=== PATIENT | male | born 1955 | race Caucasian/White ===

== ENCOUNTER 2021-10-23 09:18 | Inpatient (IN) ==
--- NOTE | 2021-10-23 09:55 | Emergency Department Note ---
SOB HPI General Chief Complaint: Shortness of Breath/Dyspnea Stated Complaint: shortness of breath Time Seen by Provider: 10/23/21 09:37 Source: patient Mode of arrival: ambulatory Limitations: no limitations History of Present Illness HPI Narrative: 58-year-old male with past medical history of hypertension presenting with shortness of breath. Patient states he was diagnosed with Covid 1 week ago as he and his both tested positive. He states his is improving but over the last 2 days he is developed worsening shortness of breath and a nonproductive cough. Endorses chills but no fever. He has not had the Covid vaccine. No chest pain, abdominal pain, vomiting, leg swelling, headache, or neck pain. Denies any other sick contacts. Denies any drug use. Related Data Home Medications Medication Instructions Recorded Confirmed potassium citrate 10 mEq (1,080 10 meq PO QDAY tab 08/04/20 10/23/21 mg) tablet,extended release Allergies Allergy/AdvReac Type Severity Reaction Status Date / Time No Known Drug Allergies Allergy Verified 09/25/21 09:07 Review of Systems ROS ROS Narrative: Narrative: Constitutional: Reports chills; Denies fever Eyes: Denies vision change ENT ED: Denies ear pain or throat pain Cardiovascular: Denies chest pain or palpitations Respiratory: Reports shortness of breath and cough; Denies hemoptysis Gastrointestinal: Denies abdominal pain, nausea or vomiting Genitourinary: Denies dysuria or frequency Musculoskeletal: Denies back pain or joint swelling Integumentary: Denies rash or lesions Neurological: Denies headache or weakness Psychiatric: Denies anxiety or depression Endocrine: Reports fatigue; Denies heat or cold intolerance Hematological/Lymphatic: Denies easy bleeding or easy bruising PFSH Narrative Patient History Narrative: Narrative: Medical/Surgical/Family History All Active Problems (Updated 10/23/21 @ 12:53 by Samuel Alves MD) COVID-19 (Acute) Hypoxia (Acute) History of colonoscopy (Chronic ~2015) Acid reflux (Chronic) Knee joint pain (Chronic) History of hernia surgery (Chronic ~2012) Creatinine elevation (Chronic) Nephrolithiasis (Chronic) Essential hypertension (Chronic) Nephrolithiasis (Chronic) Benign hypertension with CKD (chronic kidney disease) stage III (Chronic) Medicare annual wellness visit, initial (Chronic) 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 2 episodes of stone passage one recently and stones are available for analysis, probably has established essential hypertension but is yet to be placed on treatment. [place] urinalysis otherwise except for a couple of red cells with a history of recent stone passage Essential hypertension Last 2 blood pressure readings in the EMR are elevated above 140/80 At follow-up we will decide on initial treatment with probably a low-sodium diet and thiazide if indicated for his nephrolithiasis as well Knee joint pain Medicare annual wellness visit, initial Nephrolithiasis By history 2 episodes of stone passage 1 recently with multiple stones which he saved for analysis. Low urine volume and low urine pH-improved Since Jan 2021 K citrate OTC Risk assessment: Acid urine and uric acids > ss level Surgical History History of colonoscopy (~2015) 2015, 10/16/20 History of hernia surgery (~2012) Family History Mother Dementia Diabetes Father Stroke Social History Smoking Status: Former smoker Alcohol Intake Frequency: a few times a week Substance Use: does not use Exam Narrative Narrative: Narrative: General Limitations: no limitations General appearance: Present alert and other (In mild respiratory distress) Head Head: Present atraumatic and normocephalic Eye Eye: Present normal appearance, PERRL and EOMI; Absent scleral icterus or conju nctival injection ENT ENT: Present normal oropharynx and mucous membranes moist Neck Neck: Present trachea midline; Absent lymphadenopathy or thyromegaly Chest Chest: Present symmetric chest wall rise Respiratory Respiratory: Present respiratory distress and rales/crackles (At bilateral bases); Absent wheezes, stridor, accessory muscle use or prolonged expiratory phase Cardiovascular Cardiovascular: Present regular rate and normal rhythm; Absent systolic murmur or diastolic murmur Adbominal Abdominal: Present soft; Absent distention, tenderness, guarding, rebound, rigidity, organomegaly or mass Extremities Extremities: Absent pedal edema, pretibial edema or calf tenderness Back Back: Absent CVA tenderness (R), CVA tenderness (L) or spinous process tenderness Neurological Neurological: Present alert and oriented X3 Psychiatric Psychiatric: Present normal affect and normal mood Skin Skin: Present warm (WNL) and dry Course Course Course Narrative: Patient feels improved after being on O2 via nasal cannula Reevaluation(s) Time: 12:35 Consultations Consultation #1: Dr. Riley, hospitalist Time: 12:25 Vital Signs Vital signs: Vital Signs Temperature 99.0 F 10/23/21 09:18 Pulse Rate 90 10/23/21 09:18 Respiratory Rate 24 H 10/23/21 09:18 Blood Pressure 137/94 10/23/21 09:18 Pulse Oximetry (%) 88 L 10/23/21 09:18 Temperature 99.0 F 10/23/21 09:18 Pulse Rate 78 10/23/21 12:32 Respiratory Rate 23 H 10/23/21 12:32 Blood Pressure 125/89 10/23/21 12:32 Pulse Oximetry (%) 94 10/23/21 12:32 MDM MDM Narrative Medical decision making narrative: 58-year-old male presenting with shortness of breath. Patient is hypoxic on room air to 86% and is up to 93% on 4 L via nasal cannula. Chest x-ray consistent with COVID-19 infection. Labs notable for hyponatremia to 128, normal saline bolus given. [place] Covid swab sent. Patient discussed with adm itting hospitalist, Dr. Riley, who recommends Decadron and remdesivir. Patient is amenable to Decadron, 6 mg IV given. Patient refuses remdesivir at this time. Will admit for further management, patient understanding and agreeable with plan. Lab Data Lab results reviewed: Yes I reviewed the patient's lab results. Result diagrams: 10/23/21 09:39 10/23/21 09:39 Labs: Lab Results 10/23/21 10/23/21 Range/Units 09:39 09:39 WBC 6.2 (4.5-11.0) K/mcL RBC 5.83 (4.63-6.08) M/mcL Hgb 16.3 (13.7-17.5) g/dL Hct 49.0 (40.1-51.0) % MCV 84.0 (80.0-100.0) fL MCH 28.0 (26.0-34.0) pg MCHC 33.3 (31.0-36.0) g/dL RDW 13.4 (11.5-14.5) % Plt Count 241 (140-440) K/mcL MPV 10.6 H (7.4-10.4) fL Neut % (Auto) 79.1 H (38.0-78.0) % Lymph % (Auto) 8.7 L (15.5-49.0) % [place] % (Auto) 11.9 (1.0-12.0) % Eos % (Auto) 0 (0.0-7.0) % Baso % (Auto) 0.3 (0.0-2.0) % Lymph # (Auto) 0.54 L (1.50-4.80) K/mcL [place] # (Auto) 0.74 (0.10-0.90) K/mcL Eos # (Auto) 0 (0.00-0.70) K/mcL Baso # (Auto) 0.02 (0.00-0.30) K/mcL Absolute Neutrophils 4.91 (1.80-8.00) K/mcL Sodium 128 L (133-145) mmol/L Potassium 4.3 (3.3-5.1) mmol/L Chloride 95 L (96-108) mmol/L Carbon Dioxide 18 L (22-30) mmol/L Anion Gap 15.0 (8.0-16.0) BUN 17 (8-23) mg/dL Creatinine 1.4 H (0.7-1.2) mg/dL GFR Calculation 51 Glucose 117 H (70-105) mg/dL Calcium 8.7 (8.6-10.4) mg/dL Total Bilirubin 0.4 (0.1-1.0) mg/dL AST 40 H (<40) U/L ALT 19 (<40) U/L Alkaline Phosphatase 47 (39-117) U/L Total Protein 6.6 (5.9-8.4) gm/dL Albumin 3.1 L (3.2-5.2) gm/dL Globulin 3.5 (2.2-3.7) gm/dL Albumin/Globulin Ratio 0.9 L (1.0-2.3) Radiology Data Radiology results reviewed: Yes I reviewed the patient's radiology results. Radiology results narrative: Ordering Physician:Samuel Alves M.D. Date of Service:10/23/21 Procedure(s):XR chest 1V portable CLINICAL INFORMATION: Hypoxia. Recent Covid COMPARISON: None. TECHNIQUE: PA and Lateral views FINDINGS: The heart is mildly enlarged. Mediastinum is unremarkable. Pulmonary vessels are normal. There is moderate interstitial disease seen in both mid and lower lungs. This was not seen on prior 03/30/2020 CT KUB. No no effusions. IMPRESSION: Interstitial disease in both mid and lower lungs new from imaging seven months prior. This could represent pneumonia or organizing fibrosis. Mild cardiomegaly table. Interpreted and Authenticated by: Jose Alberto Kelsey 10/23/21 EKG Data EKG #1: EKG attestation: Yes I reviewed and interpreted this EKG. EKG results narrative: Normal sinus rhythm at [address] elevation or depression. Interpretation: no acute changes and normal EKG Pulse Oximetry Data Pulse Ox %: 86 Interpretation: On room air. Placed on 4 L via nasal cannula. Discharge Plan Patient/Caregiver Discharge Instructions Pt seen by [facility]/PA only: No Clinical Impression: COVID-19, Hypoxia Patient Disposition: Xfer As Inpt ([facility]) Follow up with: Jose Alberto Ramos DO [Primary Care Provider] - Prescriptions: No Action potassium citrate 10 mEq (1,080 mg) tablet extended release 10 meq PO QDAY 0RF
--- NOTE | 2021-10-23 10:30 | XRay Report ---
CLINICAL INFORMATION: Hypoxia. Recent Covid COMPARISON: None. TECHNIQUE: PA and Lateral views FINDINGS: The heart is mildly enlarged. Mediastinum is unremarkable. Pulmonary vessels are normal. There is moderate interstitial disease seen in both mid and lower lungs. This was not seen on prior 03/30/2020 CT KUB. No no effusions. IMPRESSION: Interstitial disease in both mid and lower lungs new from imaging seven months prior. This could represent pneumonia or organizing fibrosis. Mild cardiomegaly table. Interpreted and Authenticated by: Jose Alberto Kelsey 10/23/21
[2021-10-23 10:33] LABS: Basophils # (Auto) 0.02 K/mcL (0.00-0.30); Basophils % (Auto) 0.3 % (0.0-2.0); Eosinophils # (Auto) 0 K/mcL (0.00-0.70); Eosinophils % (Auto) 0 % (0.0-7.0); Hemoglobin 16.3 g/dL (13.7-17.5); Lymphocytes # (Auto) 0.54 K/mcL (1.50-4.80); Lymphocytes % (Auto) 8.7 % (15.5-49.0); Mean Corpuscular HGB Conc 33.3 g/dL (31.0-36.0); Mean Platelet Volume 10.6 fL (7.4-10.4); Monocytes # (Auto) 0.74 K/mcL (0.10-0.90); Monocytes % (Auto) 11.9 % (1.0-12.0); Neutrophils % (Auto) 79.1 % (38.0-78.0); Platelet Count 241 K/mcL (140-440); RBC 5.83 M/mcL (4.63-6.08); Red Cell Distribution Width 13.4 % (11.5-14.5); WBC 6.2 K/mcL (4.5-11.0)
[2021-10-23 11:28] LABS: ALT/SGPT 19 U/L (<40); AST/SGOT 40 U/L (<40); Albumin 3.1 gm/dL (3.2-5.2); Albumin/Globulin Ratio 0.9 (1.0-2.3); Alkaline Phosphatase 47 U/L (39-117); Bilirubin,Total 0.4 mg/dL (0.1-1.0); Blood Urea Nitrogen 17 mg/dL (8-23); Calcium 8.7 mg/dL (8.6-10.4); Carbon Dioxide 18 mmol/L (22-30); Chloride 95 mmol/L (96-108); Globulin 3.5 gm/dL (2.2-3.7); Glomerular Filtration Rate 51; Glucose 117 mg/dL (70-105)
[2021-10-23] MEDS ORDERED: 0.9 % SODIUM CHLORIDE 1,000 ML IV ONE (11:31)
[2021-10-23] MEDS ORDERED: DEXAMETHASONE 10 MG/ML VIAL IV ONE (12:21)
--- NOTE | 2021-10-23 12:32 | Internal Med History&Physical ---
HPI History of Present Illness Patient information: Note initiated : 10/23/21 at 12:30 pm Service Date, if different from initiated Date: [] Patient: Zac Farias a 66 y/o M admitted on for shortness of breath. Chief Complaint: [] History of present illness: Mr. Farias is a 66 year old M unvaccinated for Covid with who started experiencing URI symptoms roughly 10 days prior to presentation. He was tested positive for Covid 7 days ago. Has tried to work with the symptoms at home however became progressively short of breath, fatigued, tired and loss of appetite. He has not been able to eat or drink over the last few days. His symptoms have progressed to the point she could barely perform ADLs. He endorses to sick contact including his . He further endorses to increasing exertional dyspnea/cough/myalgias, headache but denies diarrhea, dysuria, hemoptysis, dysuria, joint pain or rash Initial work-up in the ER was consistent with multifocal chest infiltrates suggestive of COVID-19 pneumonia. On arrival patient sats low 80s requiring 6 L oxygen. Patient was started on dexamethasone. Subsequently hospitalist service was consulted. At the time of my evaluation patient is moderately distressed. He was able to answer most of the questions. He does not want to be initiated on remdesivir but consents for Actemra. 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 2 episodes of stone passage one recently and stones are available for analysis, probably has established essential hypertension but is yet to be placed on treatment. [place] urinalysis otherwise except for a couple of red cells with a history of recent stone passage Essential hypertension Last 2 blood pressure readings in the EMR are elevated above 140/80 At follow-up we will decide on initial treatment with probably a low-sodium diet and thiazide if indicated for his nephrolithiasis as well Knee joint pain Medicare annual wellness visit, initial Nephrolithiasis By history 2 episodes of stone passage 1 recently with multiple stones which he saved for analysis. Low urine volume and low urine pH-improved Since Jan 2021 K citrate OTC Risk assessment: Acid urine and uric acids > ss level Surgical History History of colonoscopy (~2015) 2015, 10/16/20 History of hernia surgery (~2012) Family History Mother Dementia Diabetes Father Stroke Social History marital status: occupational status: retired alcohol intake frequency: a few times a week substance use type: does not use MEDS/ALLERGIES Home Medications and Allergies Home Medications Medication Instructions Recorded Confirmed Type potassium citrate 10 mEq (1,080 10 meq PO QDAY tab 08/04/20 10/23/21 History mg) tablet,extended release Allergies Allergy/AdvReac Type Severity Reaction Status Date / Time No Known Drug Allergies Allergy Verified 09/25/21 09:07 EXAM Constitutional Vitals: Temp Pulse Resp BP Pulse Ox 99.0 F 80 23 H 122/83 92 10/23/21 09:18 10/23/21 12:02 10/23/21 12:02 10/23/21 12:02 10/23/21 12:02 Fatigue lethargic and anxious Head normocephalic Oral cavity dry No ear or nose discharge Eye no subconjunctival pallor, movement symmetrical S1-S2 regular Nonlabored breathing on 6 L oxygen Nondistended nontender abdomen Lower extremity no cyanosis clubbing or joint swelling Skin no suspicious lesion Psych anxious but no hallucination Neuro normal higher function DATA Data Completed and Pending Labs: Labs from last 24 hours 10/23/21 10/23/21 09:39 09:39 WBC 6.2 RBC 5.83 Hgb 16.3 Hct 49.0 MCV 84.0 MCH 28.0 MCHC 33.3 RDW 13.4 Plt Count 241 MPV 10.6 H Neut % (Auto) 79.1 H Lymph % (Auto) 8.7 L [place] % (Auto) 11.9 Eos % (Auto) 0 Baso % (Auto) 0.3 Lymph # (Auto) 0.54 L [place] # (Auto) 0.74 Eos # (Auto) 0 Baso # (Auto) 0.02 Absolute Neutrophils 4.91 Sodium 128 L Potassium 4.3 Chloride 95 L Carbon Dioxide 18 L Anion Gap 15.0 BUN 17 Creatinine 1.4 H GFR Calculation 51 Glucose 117 H Calcium 8.7 Total Bilirubin 0.4 AST 40 H ALT 19 Alkaline Phosphatase 47 Total Protein 6.6 Albumin 3.1 L Globulin 3.5 Albumin/Globulin Ratio 0.9 L A/P Narrative A/P Narrative: * COVID-19 pneumonia-Covid +10/16, now hypoxic requiring 4 L oxygen,PCU admission/initiate remdesivir/dexamethasone, consent for interleukin-6 number, thrombosis prophylaxis/coag and inflammatory markers, maintain COVID-19 precautions * Acute hypoxic respiratory failure secondary to Covid pneumonia. Continue with low flow oxygen/pulmonary toilet/ Prone ventilation and transition to high flow/NIV if indicated, serial ABG/CXR * Generalized weakness, malaise secondary to acute viral syndrome * Twice daily Lovenox Plan * Inpatient PCU admission * Prone positioning, low-flow oxygen and transition to high flow if indicated * Serial imaging/ABG/coag inflammatory markers/ IL6 * Remdesivir/Actemra/thrombosis prophylaxis * Directed therapies/nutrition support/early mobilization * Nutrition support Time Spent With Patient Time: CC time in excess of 35 minutes in addition to time spent on history and physical on management of hypoxia spray failure/Covid pneumonia
--- NOTE | 2021-10-23 12:54 | EKG ---
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
[2021-10-23] MEDS ORDERED: ACETAMINOPHEN 650 MG/65 ML BAG IV PRN (14:29)
[2021-10-23] MEDS ORDERED: POTASSIUM CHLORIDE 40 MEQ in DEXTROSE 5% IN WATER 500 ML IV PRN (14:29)
[2021-10-23] MEDS ORDERED: MAGNESIUM SULFATE 2 GM/50 ML BAG IV PRN (14:29)
[2021-10-23] MEDS ORDERED: REMDESIVIR 100 MG in 0.9 % SODIUM CHLORIDE 250 ML IV SCH (14:29)
[2021-10-23] MEDS ORDERED: ONDANSETRON 4 MG/2 ML VIAL IV PRN (14:29)
[2021-10-23] MEDS ORDERED: POTASSIUM CHLORIDE 20 MEQ PACKET PO PRN (14:29)
[2021-10-23] MEDS ORDERED: TOCILIZUMAB 800 MG in 0.9 % SODIUM CHLORIDE 60 ML IV ONE (15:00)
[2021-10-23] MEDS: 0.9 % SODIUM CHLORIDE 10 ML SYRINGE IV SCH ×2 (16:11→20:45)
[2021-10-23] MEDS: DOCUSATE SODIUM 100 MG CAPSULE PO SCH (20:39)
[2021-10-23] MEDS: SENNOSIDES/DOCUSATE SODIUM 1 TAB TABLET PO SCH (20:39)
[2021-10-23] MEDS: ASCORBIC ACID 500 MG TABLET PO SCH (20:40)
[2021-10-23] MEDS: ACETAMINOPHEN 325 MG TABLET PO PRN (20:40)
[2021-10-23] MEDS: ENOXAPARIN 30 MG/0.3 ML SYRINGE SQ SCH (20:40)
[2021-10-24] MEDS: ACETAMINOPHEN 325 MG TABLET PO PRN (00:41)
[2021-10-24] MEDS: 0.9 % SODIUM CHLORIDE 10 ML SYRINGE IV SCH ×3 (05:45→21:27)
[2021-10-24] MEDS: ENOXAPARIN 30 MG/0.3 ML SYRINGE SQ SCH ×2 (08:19→21:15)
[2021-10-24] MEDS: POTASSIUM CITRATE 10 MEQ TAB.XL.24H PO SCH (08:19)
[2021-10-24] MEDS: VITAMIN D3 125 MCG TABLET PO SCH (08:19)
[2021-10-24] MEDS: ASCORBIC ACID 500 MG TABLET PO SCH ×2 (08:20→21:15)
[2021-10-24] MEDS: DEXAMETHASONE 4 MG TABLET PO SCH (08:20)
[2021-10-24] MEDS: MULTIVIT,THER IRON,CA,FA & MIN 1 TABLET PO SCH (08:20)
[2021-10-24] MEDS ORDERED: FUROSEMIDE 40 MG/4 ML VIAL IV SCH (09:00)
[2021-10-24 09:12] LABS: Basophils # (Auto) 0.02 K/mcL (0.00-0.30); Basophils % (Auto) 0.5 % (0.0-2.0); Eosinophils # (Auto) 0 K/mcL (0.00-0.70); Eosinophils % (Auto) 0 % (0.0-7.0); Hematocrit 48.8 % (40.1-51.0); Hemoglobin 16.1 g/dL (13.7-17.5); Lymphocytes % (Auto) 9.9 % (15.5-49.0); Mean Cell Volume 83.1 fL (80.0-100.0); Mean Platelet Volume 9.8 fL (7.4-10.4); Monocytes # (Auto) 0.49 K/mcL (0.10-0.90); Monocytes % (Auto) 12.1 % (1.0-12.0); Neutrophils % (Auto) 77.5 % (38.0-78.0); Platelet Count 267 K/mcL (140-440); RBC 5.87 M/mcL (4.63-6.08); Red Cell Distribution Width 13.3 % (11.5-14.5); WBC 4.1 K/mcL (4.5-11.0)
[2021-10-24 09:16] LABS: ALT/SGPT 17 U/L (<40); AST/SGOT 32 U/L (<40); Albumin 2.9 gm/dL (3.2-5.2); Albumin/Globulin Ratio 0.8 (1.0-2.3); Alkaline Phosphatase 50 U/L (39-117); Bilirubin,Direct < 0.2 mg/dL (0-0.3); Bilirubin,Total 0.4 mg/dL (0.1-1.0); Blood Urea Nitrogen 17 mg/dL (8-23); Calcium 8.9 mg/dL (8.6-10.4); Carbon Dioxide 21 mmol/L (22-30); Chloride 101 mmol/L (96-108); Globulin 3.7 gm/dL (2.2-3.7); Glomerular Filtration Rate 68; Glucose 127 mg/dL (70-105); Lactate Dehydrogenase 405 U/L (135-225); Phosphorous 3.9 mg/dL (2.5-4.5); Triglycerides 87 mg/dL (<150); Uric Acid 4.8 mg/dL (2.5-8.0)
--- NOTE | 2021-10-24 11:19 | Internal Med Progress Note ---
SUBJECTIVE Subjective Patient information: Note initiated : 10/24/21 at 11:13 am Service Date, if different from initiated Date: [] Patient: Zac Farias a 66 y/o M admitted on 10/23/21 for shortness of breath. Chief Complaint: [] Interval history: Mr. Farias is a 66 year old M unvaccinated for Covid with who started experiencing URI symptoms roughly 10 days prior to presentation. He was tested positive for Covid 7 days ago. Has tried to work with the symptoms at home however became progressively short of breath, fatigued, tired and loss of appetite. He has not been able to eat or drink over the last few days. His symptoms have progressed to the point she could barely perform ADLs. He endorses to sick contact including his . He further endorses to increasing exertional dyspnea/cough/myalgias, headache but denies diarrhea, dysuria, hemoptysis, dysuria, joint pain or rash Initial work-up in the ER was consistent with multifocal chest infiltrates suggestive of COVID-19 pneumonia. On arrival patient sats low 80s requiring 6 L oxygen. Patient was started on dexamethasone. Subsequently hospitalist service was consulted. At the time of my evaluation patient is moderately distressed. He was able to answer most of the questions. He does not want to be initiated on remdesivir but consents for Actemra. 10/24-patient demonstrating dramatic clinical duration currently on 80% FiO2 50 L high flow, on dexamethasone, status post Actemra 10/23. Refusing remdesivir. Critically ill with PF ratio less than 100. Wants to be DNI. Continue ICU care, interval chest imaging/blood gas in 24 hours, on twice daily enoxaparin for thrombus prophylaxis, twice daily Lasix, creatinine at 1.1, no overnight telemetry events. Anxious and distressed, no other concerns expressed by nursing staff, ABG 7.3 over 80% FiO2 Constitutional Vitals: Vital Signs Temp Pulse Resp BP Pulse Ox 97.7 F 58 L 14 101/71 95 10/24/21 08:01 10/24/21 08:01 10/24/21 08:01 10/24/21 08:01 10/24/21 08:01 Period Temp Pulse Resp BP Sys/Sullivan Pulse Ox Last 24 Hr 96.9 F-97.8 F 55-85 13-28 101-148/67-96 70-98 Intake and Output 10/23/21 10/24/21 10/24/21 21:59 05:59 13:59 Intake Total 1520 Output Total 900 600 450 Balance 620 -600 -450 Weight 98.118 kg Alert oriented Anxious Labored breathing on high flow oxygen 80% 50 L No lymphedema Intake & Output: Intake & Output 10/23/21 10/24/21 10/24/21 21:59 05:59 13:59 Intake Total 1520 Output Total 900 600 450 Balance 620 -600 -450 Weight 98.118 kg Intake: IV 1100 Sodium Chloride 0.9% 1,000 ml @ 1000 Wide Open IV BOLUS ONE Rx#: [id number] Actemra 800 mg In Sodium 100 Chloride 0.9% 60 ml @ 100 mls/ hr IV ONCE ONE Rx#:[id number] Oral 420 Output: Void Amount 900 600 450 Other: Meal Dinner Percent of Meal Consumed 75% Feeding Ability Independent Urine Appearance Clear Clear Clear Urine Color Bright Yellow Bright Yellow Dark Yellow Urine Odor Normal Normal OBJ DATA Labs CBC & Chem 7: 10/24/21 05:38 10/24/21 05:38 Labs: Abnormal Lab Results 10/24/21 10/24/21 10/24/21 05:38 05:38 05:38 WBC 4.1 L MPV Neut % (Auto) Lymph % (Auto) 9.9 L [place] % (Auto) 12.1 H Lymph # (Auto) 0.40 L D-Dimer 1.82 H Sodium Chloride Carbon Dioxide 21 L Creatinine Glucose 127 H Magnesium 2.9 H AST Lactate Dehydrogenase 405 H Albumin 2.9 L Albumin/Globulin Ratio 0.8 L Procalcitonin 10/23/21 10/23/21 10/23/21 09:39 09:39 09:39 WBC MPV 10.6 H Neut % (Auto) 79.1 H Lymph % (Auto) 8.7 L [place] % (Auto) Lymph # (Auto) 0.54 L D-Dimer Sodium 128 L Chloride 95 L Carbon Dioxide 18 L Creatinine 1.4 H Glucose 117 H Magnesium AST 40 H Lactate Dehydrogenase Albumin 3.1 L Albumin/Globulin Ratio 0.9 L Procalcitonin 0.15 H Meds: Medications Acetaminophen (Acetaminophen 325 Mg Tablet) 650 mg PO Q4-6HP PRN; Protocol PRN Reason: Per Pain Protocol/Fever > 101 Last Admin: 10/24/21 00:41 Dose: 650 mg Documented by: Ascorbic Acid (Ascorbic Acid 500 Mg Tablet) 1,000 mg PO BID [facility] Last Admin: 10/24/21 08:20 Dose: 1,000 mg Documented by: Dexamethasone (Dexamethasone 4 Mg Tablet) 6 mg PO DAILY [facility] Last Admin: 10/24/21 08:20 Dose: 6 mg Documented by: Docusate Sodium (Docusate Sodium 100 Mg Capsule) 100 mg PO BID [facility] Last Admin: 10/23/21 20:39 Dose: Not Given Documented by: Enoxaparin Sodium (Enoxaparin 30 Mg/0.3 Ml Syringe) 30 mg SQ BID [facility] Last Admin: 10/24/21 08:19 Dose: 30 mg Documented by: Furosemide (Furosemide 40 Mg/4 Ml Vial) 20 mg IV BIDD [facility] Guaifenesin (Guaifenesin 100 Mg/5 Ml Oral Dianne) 100 mg PO Q4HP PRN PRN Reason: Congestion Last Admin: 10/23/21 21:26 Dose: 100 mg Documented by: Acetaminophen (Ofirmev) 650 mg in 65 mls @ 130 mls/hr IV Q6HP PRN; Protocol PRN Reason: Per Pain Protocol/Fever > 101 Magnesium Sulfate (Magnesium Sulfate) 2 gm in 50 mls @ 50 mls/hr IV UD PRN PRN Reason: MG = or < 1.7 Potassium Chloride 40 meq/ (Dextrose) 520 mls @ 130 mls/hr IV UD PRN PRN Reason: K+ = or < 3.5 Iron Carb/Multivit/[place]/Folic Acid (Multivit,Ther Iron,Ca,Fa & Min 1 Tablet) 1 tab PO DAILY [facility] Last Admin: 10/24/21 08:20 Dose: 1 tab Documented by: Melatonin (Melatonin 3 Mg Tablet) 3 mg PO HSP PRN PRN Reason: Insomnia Ondansetron HCl (Ondansetron 4 Mg/2 Ml Vial) 4 mg IV Q4-6HP PRN; Protocol PRN Reason: Nausea And Vomiting Potassium Chloride (Potassium Chloride 20 Meq Packet) 40 meq PO DAILYP PRN PRN Reason: K+ < 3.5 Potassium Citrate (Potassium Citrate 10 Meq Tab.Xl.24h) 10 meq PO QDAY [facility] Last Admin: 10/24/21 08:19 Dose: 10 meq Documented by: Senna/Docusate Sodium (Sennosides/Docusate Sodium 1 Tab Tablet) 1 tab PO HS [facility] Last Admin: 10/23/21 20:39 Dose: Not Given Documented by: Sodium Chloride (0.9 % Sodium Chloride 10 Ml Syringe) 10 ml IV Q8 [facility] Last Admin: 10/24/21 05:45 Dose: 10 ml Documented by: Vitamin D (Vitamin D3 5,000 Unit Tablet) 5,000 unit PO DAILY [facility] Last Admin: 10/24/21 08:19 Dose: 5,000 unit Documented by: A/P Narrative A/P Narrative: * COVID-19 pneumonia-Covid +10/16, status post Actemra, continue dexamethasone, on COVID-19 precautions * Acute hypoxic respiratory failure secondary to Covid pneumonia. PF ratio less than 100, multifocal infiltrates, on high flow 80% FiO2 and 50 L Vapotherm. Attempt prone ventilation and transition to NIV if indicated, serial ABG/CXR * Generalized weakness, malaise secondary to acute viral syndrome * Twice daily Lovenox Plan * Continue ICU care, Evans 2 score 16 indicating high risk mortality * High flow oxygen and transitional NIV if indicated * Serial imaging/ABG * Consider remdesivir(patient refusing) * Directed therapies/nutrition support/early mobilization Time Spent With Patient Time: CC time Total time spent with greater than 50% in coordination of care (as documented) at patient's floor/unit and/or counseling patient:: Greater than 35 minutes QUALITY VTE Deep Vein Thrombosis/Pulmonary Embolism Present on Admission: No
[2021-10-24] MEDS: DOCUSATE SODIUM 100 MG CAPSULE PO SCH ×2 (12:16→21:27)
[2021-10-24] MEDS: FUROSEMIDE 40 MG/4 ML VIAL IV SCH (16:31)
[2021-10-24] MEDS ORDERED: BUDESONIDE 0.5 MG/2 ML AMPUL.NEB NEB PRN (16:43)
[2021-10-24] MEDS: SENNOSIDES/DOCUSATE SODIUM 1 TAB TABLET PO SCH (21:27)
[2021-10-25] MEDS: ACETAMINOPHEN 325 MG TABLET PO PRN ×2 (01:51→09:18)
[2021-10-25] MEDS: 0.9 % SODIUM CHLORIDE 10 ML SYRINGE IV SCH ×4 (01:51→19:59)
[2021-10-25 07:05] LABS: Basophils # (Auto) 0.02 K/mcL (0.00-0.30); Basophils % (Auto) 0.2 % (0.0-2.0); Eosinophils # (Auto) 0.01 K/mcL (0.00-0.70); Eosinophils % (Auto) 0.1 % (0.0-7.0); Hematocrit 49.9 % (40.1-51.0); Hemoglobin 16.4 g/dL (13.7-17.5); Lymphocytes # (Auto) 0.64 K/mcL (1.50-4.80); Lymphocytes % (Auto) 7.9 % (15.5-49.0); Mean Cell Volume 82.5 fL (80.0-100.0); Mean Corpuscular HGB Conc 32.9 g/dL (31.0-36.0); Mean Platelet Volume 9.7 fL (7.4-10.4); Monocytes # (Auto) 0.49 K/mcL (0.10-0.90); Neutrophils % (Auto) 85.8 % (38.0-78.0); Platelet Count 356 K/mcL (140-440); RBC 6.05 M/mcL (4.63-6.08); Red Cell Distribution Width 13.2 % (11.5-14.5); WBC 8.1 K/mcL (4.5-11.0)
--- NOTE | 2021-10-25 07:21 | XRay Report ---
CLINICAL INFORMATION: Hypoxia. Recent pelvic COMPARISON: 10/23/2021 TECHNIQUE: PA and Lateral views FINDINGS: Mild cardiomegaly is unchanged. Mediastinum is unremarkable. Pulmonary vessels are mildly distended. Moderate interstitial disease throughout both lungs has progressed from yesterday. Small patchy superimposed infiltrate developing in the lingular region. No effusions. IMPRESSION: Moderate diffuse interstitial disease throughout both lungs progressive from yesterday. This may represent CHF consider correlation with BNP and other clinical parameters and diuretic trial. Small superimposed lingular infiltrate Interpreted and Authenticated by: Jose Alberto Kelsey 10/25/21
[2021-10-25 07:26] LABS: ALT/SGPT 19 U/L (<40); AST/SGOT 32 U/L (<40); Albumin/Globulin Ratio 0.9 (1.0-2.3); Alkaline Phosphatase 48 U/L (39-117); Bilirubin,Direct < 0.2 mg/dL (0-0.3); Bilirubin,Total 0.4 mg/dL (0.1-1.0); Blood Urea Nitrogen 25 mg/dL (8-23); Calcium 9.2 mg/dL (8.6-10.4); Carbon Dioxide 20 mmol/L (22-30); Chloride 97 mmol/L (96-108); Globulin 3.2 gm/dL (2.2-3.7); Glomerular Filtration Rate 56; Glucose 107 mg/dL (70-105); Lactate Dehydrogenase 434 U/L (135-225); Phosphorous 4.2 mg/dL (2.5-4.5); Triglycerides 129 mg/dL (<150); Uric Acid 5.6 mg/dL (2.5-8.0)
[2021-10-25] MEDS: FUROSEMIDE 40 MG/4 ML VIAL IV SCH (07:55)
[2021-10-25] MEDS ORDERED: INSULIN GLARGINE, HUMAN 1 UNIT/0.01 ML SQ SCH (09:00)
[2021-10-25] MEDS: MULTIVIT,THER IRON,CA,FA & MIN 1 TABLET PO SCH (09:17)
[2021-10-25] MEDS: DOCUSATE SODIUM 100 MG CAPSULE PO SCH ×2 (09:17→19:58)
[2021-10-25] MEDS: DEXAMETHASONE 4 MG TABLET PO SCH (09:17)
[2021-10-25] MEDS: ASCORBIC ACID 500 MG TABLET PO SCH ×2 (09:17→19:58)
[2021-10-25] MEDS: ENOXAPARIN 30 MG/0.3 ML SYRINGE SQ SCH ×2 (09:17→19:58)
[2021-10-25] MEDS: FUROSEMIDE 20 MG/2 ML VIAL IV SCH (09:18)
[2021-10-25] MEDS: POTASSIUM CITRATE 10 MEQ TAB.XL.24H PO SCH (09:26)
[2021-10-25] MEDS: VITAMIN D3 125 MCG TABLET PO SCH (09:26)
--- NOTE | 2021-10-25 11:58 | Internal Med Progress Note ---
SUBJECTIVE Subjective Patient information: Note initiated : 10/25/21 at 11:55 am Service Date, if different from initiated Date: [] Patient: Zac Farias a 66 y/o M admitted on 10/23/21 for shortness of breath. Chief Complaint: [] Interval history: Mr. Farias is a 66 year old M unvaccinated for Covid with who started experiencing URI symptoms roughly 10 days prior to presentation. He was tested positive for Covid 7 days ago. Has tried to work with the symptoms at home however became progressively short of breath, fatigued, tired and loss of appetite. He has not been able to eat or drink over the last few days. His symptoms have progressed to the point she could barely perform ADLs. He endorses to sick contact including his . He further endorses to increasing exertional dyspnea/cough/myalgias, headache but denies diarrhea, dysuria, hemoptysis, dysuria, joint pain or rash Initial work-up in the ER was consistent with multifocal chest infiltrates suggestive of COVID-19 pneumonia. On arrival patient sats low 80s requiring 6 L oxygen. Patient was started on dexamethasone. Subsequently hospitalist service was consulted. At the time of my evaluation patient is moderately distressed. He was able to answer most of the questions. He does not want to be initiated on remdesivir but consents for Actemra. 10/24-patient demonstrating dramatic clinical duration currently on 80% FiO2 50 L high flow, on dexamethasone, status post Actemra 10/23. Refusing remdesivir. Critically ill with PF ratio less than 100. Wants to be DNI. Continue ICU care, interval chest imaging/blood gas in 24 hours, on twice daily enoxaparin for thrombus prophylaxis, twice daily Lasix, creatinine at 1.1, no overnight telemetry events. Anxious and distressed, no other concerns expressed by nursing staff, ABG 7.3 over 80% FiO2 10/25-patient clinically deteriorating, high risk mortality now on 85% FiO2 at 40 L high flow. Continues to refuse remdesivir. Status post Actemra, on dexamethasone. On twice daily thromboprophylaxis/gentle diuresis to improve lung compliance. Discussed patient's clinical findings/with interval worsening of chest imaging. Check echocardiogram, white count 8.1, creatinine 1.3, elevated LDH. Remains critically ill, continue close hemodynamic monitoring in ICU Constitutional Vitals: Vital Signs Temp Pulse Resp BP Pulse Ox 97.7 F 64 20 114/76 93 10/25/21 08:01 10/25/21 08:01 10/25/21 08:01 10/25/21 08:01 10/25/21 08:01 Period Temp Pulse Resp BP Sys/Sullivan Pulse Ox Last 24 Hr 96.9 F-98.4 F 59-86 - 87-138/58-96 86-98 Intake and Output 10/24/21 10/25/21 10/25/21 21:59 05:59 13:59 Intake Total 800 480 400 Output Total 1050 350 225 Balance -250 130 175 Weight 97.211 kg alert but anxious On high flow oxygen No telemetry events No lymphedema Intake & Output: Intake & Output 10/24/21 10/25/21 10/25/21 21:59 05:59 13:59 Intake Total 800 480 400 Output Total 1050 350 225 Balance -250 130 175 Weight 97.211 kg Intake: Oral 800 480 400 Output: Void Amount 1050 350 225 Other: Meal Dinner Percent of Meal Consumed 100% Urine Appearance Clear Clear Clear Urine Color Straw Dark Yellow Dark Amy OBJ DATA Labs CBC & Chem 7: 10/25/21 05:10 10/25/21 05:10 Labs: Abnormal Lab Results 10/25/21 10/25/21 10/25/21 05:10 05:10 05:10 WBC MPV Neut % (Auto) 85.8 H Lymph % (Auto) 7.9 L [place] % (Auto) Lymph # (Auto) 0.64 L D-Dimer 1.21 H Sodium Chloride Carbon Dioxide 20 L BUN 25 H Creatinine 1.3 H Glucose 107 H Magnesium AST Lactate Dehydrogenase 434 H Albumin 3.0 L Albumin/Globulin Ratio 0.9 L Procalcitonin 10/24/21 10/24/21 10/24/21 05:38 05:38 05:38 WBC 4.1 L MPV Neut % (Auto) Lymph % (Auto) 9.9 L [place] % (Auto) 12.1 H Lymph # (Auto) 0.40 L D-Dimer 1.82 H Sodium Chloride Carbon Dioxide 21 L BUN Creatinine Glucose 127 H Magnesium 2.9 H AST Lactate Dehydrogenase 405 H Albumin 2.9 L Albumin/Globulin Ratio 0.8 L Procalcitonin 10/23/21 10/23/21 10/23/21 09:39 09:39 09:39 WBC MPV 10.6 H Neut % (Auto) 79.1 H Lymph % (Auto) 8.7 L [place] % (Auto) Lymph # (Auto) 0.54 L D-Dimer Sodium 128 L Chloride 95 L Carbon Dioxide 18 L BUN Creatinine 1.4 H Glucose 117 H Magnesium AST 40 H Lactate Dehydrogenase Albumin 3.1 L Albumin/Globulin Ratio 0.9 L Procalcitonin 0.15 H Meds: Medications Acetaminophen (Acetaminophen 325 Mg Tablet) 650 mg PO Q4-6HP PRN; Protocol PRN Reason: Per Pain Protocol/Fever > 101 Last Admin: 10/25/21 09:18 Dose: 650 mg Documented by: Ascorbic Acid (Ascorbic Acid 500 Mg Tablet) 1,[address] [facility] Last Admin: 10/25/21 09:17 Dose: 1,000 mg Documented by: Budesonide (Budesonide 0.5 Mg/2 Ml Ampul.Neb) 0.5 mg NEB DAILYP PRN PRN Reason: Wheezing Last Admin: 10/24/21 17:39 Dose: 0.5 mg Documented by: Dexamethasone (Dexamethasone 4 Mg Tablet) [address] [facility] Last Admin: 10/25/21 09:17 Dose: 6 mg Documented by: Docusate Sodium (Docusate Sodium 100 Mg Capsule) [address] [facility] Last Admin: 10/25/21 09:17 Dose: 100 mg Documented by: Enoxaparin Sodium (Enoxaparin 30 Mg/0.3 Ml Syringe) [address] [facility] Last Admin: 10/25/21 09:17 Dose: 30 mg Documented by: Furosemide (Furosemide 20 Mg/2 Ml Vial) [address] [facility] Last Admin: 10/25/21 09:18 Dose: Not Given Documented by: Guaifenesin (Guaifenesin 100 Mg/5 Ml Oral Dianne) 100 mg PO Q4HP PRN PRN Reason: Congestion Last Admin: 10/23/21 21:26 Dose: 100 mg Documented by: Acetaminophen (Ofirmev) 650 mg in 65 mls @ 130 mls/hr IV Q6HP PRN; Protocol PRN Reason: Per Pain Protocol/Fever > 101 Magnesium Sulfate (Magnesium Sulfate) 2 gm in 50 mls @ 50 mls/hr IV UD PRN PRN Reason: MG = or < 1.7 Potassium Chloride 40 meq/ (Dextrose) 520 mls @ 130 mls/hr IV UD PRN PRN Reason: K+ = or < 3.5 Iron Carb/Multivit/Sales Professional/Folic Acid (Multivit,Ther Iron,Ca,Fa & Min 1 Tablet) [address] [facility] Last Admin: 10/25/21 09:17 Dose: 1 tab Documented by: Melatonin (Melatonin 3 Mg Tablet) 3 mg PO HSP PRN PRN Reason: Insomnia Ondansetron HCl (Ondansetron 4 Mg/2 Ml Vial) 4 mg IV Q4-6HP PRN; Protocol PRN Reason: Nausea And Vomiting Last Admin: 10/25/21 01:50 Dose: 4 mg Documented by: Potassium Chloride (Potassium Chloride 20 Meq Packet) 40 meq PO DAILYP PRN PRN Reason: K+ < 3.5 Potassium Citrate (Potassium Citrate 10 Meq Tab.Xl.24h) [address] [facility] Last Admin: 10/25/21 09:26 Dose: 10 meq Documented by: Senna/Docusate Sodium (Sennosides/Docusate Sodium 1 Tab Tablet) [address] [facility] Last Admin: 10/24/21 21:27 Dose: 1 tab Documented by: Sodium Chloride (0.9 % Sodium Chloride 10 Ml Syringe) [address] [facility] Last Admin: 10/25/21 05:39 Dose: Not Given Documented by: Vitamin D (Vitamin D3 5,000 Unit Tablet) 5,[address] [facility] Last Admin: 10/25/21 09:26 Dose: 5,000 unit Documented by: A/P Narrative A/P Narrative: * COVID-19 pneumonia-Covid +10/16, status post Actemra, continue dexamethasone, on COVID-19 precautions * Acute hypoxic respiratory failure secondary to Covid pneumonia. PF ratio less than 100, multifocal infiltrates, on high flow 80% FiO2 and 50 L Vapotherm. Attempt prone ventilation and transition to NIV if indicated, serial ABG/CXR * Generalized weakness, malaise secondary to acute viral syndrome * Twice daily Lovenox Plan * Patient remains critically ill * Continue high flow oxygen and transitional NIV if indicated * Serial imaging/ABG * Again discussed remdesivir(patient refusing) * Directed therapies/nutrition support/early mobilization Time Spent With Patient Time: Critical care time Total time spent with greater than 50% in coordination of care (as documented) at patient's floor/unit and/or counseling patient:: Greater than 35 minutes QUALITY VTE Deep Vein Thrombosis/Pulmonary Embolism Present on Admission: No
[2021-10-25] MEDS: SENNOSIDES/DOCUSATE SODIUM 1 TAB TABLET PO SCH (19:58)
[2021-10-26] MEDS: 0.9 % SODIUM CHLORIDE 10 ML SYRINGE IV SCH ×4 (05:46→22:15)
[2021-10-26 07:10] LABS: Basophils # (Auto) 0.02 K/mcL (0.00-0.30); Basophils % (Auto) 0.3 % (0.0-2.0); Eosinophils # (Auto) 0.08 K/mcL (0.00-0.70); Eosinophils % (Auto) 1.3 % (0.0-7.0); Hematocrit 49.7 % (40.1-51.0); Hemoglobin 16.2 g/dL (13.7-17.5); Lymphocytes # (Auto) 0.72 K/mcL (1.50-4.80); Lymphocytes % (Auto) 11.4 % (15.5-49.0); Mean Cell Volume 83.7 fL (80.0-100.0); Mean Corpuscular HGB Conc 32.6 g/dL (31.0-36.0); Mean Platelet Volume 9.5 fL (7.4-10.4); Monocytes # (Auto) 0.33 K/mcL (0.10-0.90); Monocytes % (Auto) 5.2 % (1.0-12.0); Neutrophils % (Auto) 81.8 % (38.0-78.0); Platelet Count 378 K/mcL (140-440); RBC 5.94 M/mcL (4.63-6.08); Red Cell Distribution Width 13.3 % (11.5-14.5); WBC 6.3 K/mcL (4.5-11.0)
[2021-10-26 07:50] LABS: ALT/SGPT 19 U/L (<40); AST/SGOT 32 U/L (<40); Albumin/Globulin Ratio 0.9 (1.0-2.3); Alkaline Phosphatase 48 U/L (39-117); Bilirubin,Direct < 0.2 mg/dL (0-0.3); Bilirubin,Total 0.3 mg/dL (0.1-1.0); Blood Urea Nitrogen 27 mg/dL (8-23); Calcium 9.2 mg/dL (8.6-10.4); Carbon Dioxide 26 mmol/L (22-30); Chloride 96 mmol/L (96-108); Globulin 3.2 gm/dL (2.2-3.7); Glomerular Filtration Rate 51; Glucose 90 mg/dL (70-105); Lactate Dehydrogenase 432 U/L (135-225); Phosphorous 3.9 mg/dL (2.5-4.5); Triglycerides 157 mg/dL (<150); Uric Acid 5.3 mg/dL (2.5-8.0)
[2021-10-26] MEDS ORDERED: LORazepam 2 MG/ML VIAL IV PRN (07:51)
--- NOTE | 2021-10-26 08:27 | Internal Med Progress Note ---
SUBJECTIVE Subjective Patient information: Note initiated : 10/26/21 at 8:24 am Service Date, if different from initiated Date: [] Patient: Zac Farias a 66 y/o M admitted on 10/23/21 for shortness of breath. Chief Complaint: [] Interval history: Mr. Farias is a 66 year old M unvaccinated for Covid with who started experiencing URI symptoms roughly 10 days prior to presentation. He was tested positive for Covid 7 days ago. Has tried to work with the symptoms at home however became progressively short of breath, fatigued, tired and loss of appetite. He has not been able to eat or drink over the last few days. His symptoms have progressed to the point she could barely perform ADLs. He endorses to sick contact including his . He further endorses to increasing exertional dyspnea/cough/myalgias, headache but denies diarrhea, dysuria, hemoptysis, dysuria, joint pain or rash Initial work-up in the ER was consistent with multifocal chest infiltrates suggestive of COVID-19 pneumonia. On arrival patient sats low 80s requiring 6 L oxygen. Patient was started on dexamethasone. Subsequently hospitalist service was consulted. At the time of my evaluation patient is moderately distressed. He was able to answer most of the questions. He does not want to be initiated on remdesivir but consents for Actemra. 10/24-patient demonstrating dramatic clinical duration currently on 80% FiO2 50 L high flow, on dexamethasone, status post Actemra 10/23. Refusing remdesivir. Critically ill with PF ratio less than 100. Wants to be DNI. Continue ICU care, interval chest imaging/blood gas in 24 hours, on twice daily enoxaparin for thrombus prophylaxis, twice daily Lasix, creatinine at 1.1, no overnight telemetry events. Anxious and distressed, no other concerns expressed by nursing staff, ABG 7.3 over 80% FiO2 10/25-patient clinically deteriorating, high risk mortality now on 85% FiO2 at 40 L high flow. Continues to refuse remdesivir. Status post Actemra, on dexamethasone. On twice daily thromboprophylaxis/gentle diuresis to improve lung compliance. Discussed patient's clinical findings/with interval worsening of chest imaging. Check echocardiogram, white count 8.1, creatinine 1.3, elevated LDH. Remains critically ill, continue close hemodynamic monitoring in ICU 10/26-patient critically ill currently on 90% FiO2 40 L high flow nasal cannula oxygen. Interval worsening noted. On dexamethasone, refused remdesivir, status post Actemra. White count 6.3, renal function stable creatinine 1.4, feels fatigued lethargic. Tolerating diet. No telemetry events. No other concerns expressed by nursing staff. Reiterated overall grim prognosis to patient based on oxygen need and progression to ARDS . Blood gas 7.51 on 90% FiO2, PF less than 70 Constitutional Vitals: Vital Signs Temp Pulse Resp BP Pulse Ox 97.8 F 62 19 117/83 93 10/26/21 04:01 10/26/21 05:55 10/26/21 06:01 10/26/21 06:01 10/26/21 06:01 Period Temp Pulse Resp BP Sys/Sullivan Pulse Ox Last 24 Hr 97.3 F-98.0 F 59-62 10-24 103-136/70-95 88-100 Intake and Output 10/25/21 10/26/21 10/26/21 21:59 05:59 13:59 Intake Total 600 480 Output Total 900 575 Balance -300 -95 Weight 99.291 kg patient anxious. On high flow 90% FiO2 transition to NIV No lymphedema No telemetry events Intake & Output: Intake & Output 10/25/21 10/26/21 10/26/21 21:59 05:59 13:59 Intake Total 600 480 Output Total 900 575 Balance -300 -95 Weight 99.291 kg Intake: Oral 600 480 Output: Void Amount 900 575 Other: Meal Dinner Percent of Meal Consumed 75% Feeding Ability Assist with Tray Set Up Urine Appearance Clear Clear Urine Color Bright Yellow Dark Yellow Urine Odor Normal OBJ DATA Labs CBC & Chem 7: 10/26/21 05:24 10/26/21 05:24 Labs: Abnormal Lab Results 10/26/21 10/26/21 10/25/21 05:24 05:24 05:10 WBC MPV Neut % (Auto) 81.8 H Lymph % (Auto) 11.4 L [place] % (Auto) Lymph # (Auto) 0.72 L D-Dimer Sodium Chloride Carbon Dioxide 20 L BUN 27 H 25 H Creatinine 1.4 H 1.3 H Glucose 107 H Magnesium AST Lactate Dehydrogenase 432 H 434 H Albumin 3.0 L 3.0 L Albumin/Globulin Ratio 0.9 L 0.9 L Triglycerides 157 H Procalcitonin 10/25/21 10/25/21 10/24/21 05:10 05:10 05:38 WBC MPV Neut % (Auto) 85.8 H Lymph % (Auto) 7.9 L [place] % (Auto) Lymph # (Auto) 0.64 L D-Dimer 1.21 H Sodium Chloride Carbon Dioxide 21 L BUN Creatinine Glucose 127 H Magnesium 2.9 H AST Lactate Dehydrogenase 405 H Albumin 2.9 L Albumin/Globulin Ratio 0.8 L Triglycerides Procalcitonin 10/24/21 10/24/21 10/23/21 05:38 05:38 09:39 WBC 4.1 L MPV Neut % (Auto) Lymph % (Auto) 9.9 L [place] % (Auto) 12.1 H Lymph # (Auto) 0.40 L D-Dimer 1.82 H Sodium Chloride Carbon Dioxide BUN Creatinine Glucose Magnesium AST Lactate Dehydrogenase Albumin Albumin/Globulin Ratio Triglycerides Procalcitonin 0.15 H 10/23/21 10/23/21 09:39 09:39 WBC MPV 10.6 H Neut % (Auto) 79.1 H Lymph % (Auto) 8.7 L [place] % (Auto) Lymph # (Auto) 0.54 L D-Dimer Sodium 128 L Chloride 95 L Carbon Dioxide 18 L BUN Creatinine 1.4 H Glucose 117 H Magnesium AST 40 H Lactate Dehydrogenase Albumin 3.1 L Albumin/Globulin Ratio 0.9 L Triglycerides Procalcitonin Meds: Medications Acetaminophen (Acetaminophen 325 Mg Tablet) 650 mg PO Q4-6HP PRN; Protocol PRN Reason: Per Pain Protocol/Fever > 101 Last Admin: 10/25/21 09:18 Dose: 650 mg Documented by: Ascorbic Acid (Ascorbic Acid 500 Mg Tablet) 1,000 mg PO BID [facility] Last Admin: 10/25/21 19:58 Dose: 1,000 mg Documented by: Budesonide (Budesonide 0.5 Mg/2 Ml Ampul.Neb) 0.5 mg NEB DAILYP PRN PRN Reason: Wheezing Last Admin: 10/24/21 17:39 Dose: 0.5 mg Documented by: Dexamethasone (Dexamethasone 4 Mg Tablet) 6 mg PO DAILY [facility] Last Admin: 10/25/21 09:17 Dose: 6 mg Documented by: Docusate Sodium (Docusate Sodium 100 Mg Capsule) 100 mg PO BID [facility] Last Admin: 10/25/21 19:58 Dose: 100 mg Documented by: Enoxaparin Sodium (Enoxaparin 30 Mg/0.3 Ml Syringe) 30 mg SQ BID [facility] Last Admin: 10/25/21 19:58 Dose: 30 mg Documented by: Furosemide (Furosemide 20 Mg/2 Ml Vial) 20 mg IV DAILY [facility] Last Admin: 10/25/21 09:18 Dose: Not Given Documented by: Guaifenesin (Guaifenesin 100 Mg/5 Ml Oral Dianne) 100 mg PO Q4HP PRN PRN Reason: Congestion Last Admin: 10/23/21 21:26 Dose: 100 mg Documented by: Acetaminophen (Ofirmev) 650 mg in 65 mls @ 130 mls/hr IV Q6HP PRN; Protocol PRN Reason: Per Pain Protocol/Fever > 101 Magnesium Sulfate (Magnesium Sulfate) 2 gm in 50 mls @ 50 mls/hr IV UD PRN PRN Reason: MG = or < 1.7 Potassium Chloride 40 meq/ (Dextrose) 520 mls @ 130 mls/hr IV UD PRN PRN Reason: K+ = or < 3.5 Iron Carb/Multivit/Film Producer/Folic Acid (Multivit,Ther Iron,Ca,Fa & Min 1 Tablet) 1 tab PO DAILY [facility] Last Admin: 10/25/21 09:17 Dose: 1 tab Documented by: Lorazepam (Lorazepam 2 Mg/Ml Vial) 0.5 mg IV Q12 PRN PRN Reason: ANXIETY/SEDATION Melatonin (Melatonin 3 Mg Tablet) 3 mg PO HSP PRN PRN Reason: Insomnia Ondansetron HCl (Ondansetron 4 Mg/2 Ml Vial) 4 mg IV Q4-6HP PRN; Protocol PRN Reason: Nausea And Vomiting Last Admin: 10/25/21 01:50 Dose: 4 mg Documented by: Potassium Chloride (Potassium Chloride 20 Meq Packet) 40 meq PO DAILYP PRN PRN Reason: K+ < 3.5 Potassium Citrate (Potassium Citrate 10 Meq Tab.Xl.24h) 10 meq PO QDAY [facility] Last Admin: 10/25/21 09:26 Dose: 10 meq Documented by: Senna/Docusate Sodium (Sennosides/Docusate Sodium 1 Tab Tablet) 1 tab PO HS [facility] Last Admin: 10/25/21 19:58 Dose: 1 tab Documented by: Sodium Chloride (0.9 % Sodium Chloride 10 Ml Syringe) 10 ml IV Q8 [facility] Last Admin: 10/26/21 05:46 Dose: 10 ml Documented by: Vitamin D (Vitamin D3 5,000 Unit Tablet) 5,000 unit PO DAILY [facility] Last Admin: 10/25/21 09:26 Dose: 5,000 unit Documented by: A/P Narrative A/P Narrative: * COVID-19 pneumonia-Covid +10/16, status post Actemra, continue dexamethasone day 3 on COVID-19 precautions * Acute hypoxic respiratory failure secondary to Covid pneumonia. PF less than 70, start noninvasive ventilation * ARDS. Secondary to COVID-19 pneumonia * Generalized weakness, malaise secondary to acute viral syndrome * Twice daily Lovenox Plan * Noninvasive ventilation/serial blood gas imaging/gentle diuresis * Continue dexamethasone, patient repeatedly refused remdesivir despite multiple discussions * Prone ventilation/nutrition support Time Spent With Patient Time: Critical care time Total time spent with greater than 50% in coordination of care (as documented) at patient's floor/unit and/or counseling patient:: Greater than 35 minutes QUALITY VTE Deep Vein Thrombosis/Pulmonary Embolism Present on Admission: No
[2021-10-26] MEDS: MULTIVIT,THER IRON,CA,FA & MIN 1 TABLET PO SCH (08:58)
[2021-10-26] MEDS: FUROSEMIDE 20 MG/2 ML VIAL IV SCH (08:58)
[2021-10-26] MEDS: VITAMIN D3 125 MCG TABLET PO SCH (08:58)
[2021-10-26] MEDS: POTASSIUM CITRATE 10 MEQ TAB.XL.24H PO SCH (08:58)
[2021-10-26] MEDS: DEXAMETHASONE 4 MG TABLET PO SCH (08:58)
[2021-10-26] MEDS: ASCORBIC ACID 500 MG TABLET PO SCH ×2 (08:58→20:55)
[2021-10-26] MEDS: DOCUSATE SODIUM 100 MG CAPSULE PO SCH ×2 (08:58→20:55)
[2021-10-26] MEDS: ENOXAPARIN 30 MG/0.3 ML SYRINGE SQ SCH ×2 (08:59→20:55)
--- NOTE | 2021-10-26 13:00 | XRay Report ---
CLINICAL INFORMATION: Follow-up pneumonia COMPARISON: 10/25/2021 TECHNIQUE: Portable FINDINGS: Mild cardiomegaly is unchanged. Mediastinum is unremarkable. Pulmonary vessels are normal on today's exam. Moderate interstitial disease throughout both lungs has progressed from yesterday. There are now moderate patchy superimposed alveolar infiltrates in both mid lungs throughout both lungs has progressed from yesterday. No definite effusions. IMPRESSION: Moderate diffuse interstitial disease throughout both lungs progressing from yesterday now with moderate patchy alveolar infiltrate superimposed on the mid lungs. The pulmonary vessels appear normal on today's exam-no evidence of CHF. Consider infection such as viral or mycoplasma pneumonia. Suggest chest CT Interpreted and Authenticated by: Jose Alberto Kelsey 10/26/21
[2021-10-26] MEDS: SENNOSIDES/DOCUSATE SODIUM 1 TAB TABLET PO SCH (20:55)
[2021-10-26] MEDS: ACETAMINOPHEN 325 MG TABLET PO PRN (21:06)
[2021-10-27] MEDS: 0.9 % SODIUM CHLORIDE 10 ML SYRINGE IV SCH ×5 (06:10→21:52)
[2021-10-27 06:50] LABS: Basophils # (Auto) 0.06 K/mcL (0.00-0.30); Basophils % (Auto) 1.1 % (0.0-2.0); Eosinophils % (Auto) 3.7 % (0.0-7.0); Hematocrit 51.4 % (40.1-51.0); Hemoglobin 16.4 g/dL (13.7-17.5); Lymphocytes % (Auto) 12.8 % (15.5-49.0); Mean Corpuscular HGB Conc 31.9 g/dL (31.0-36.0); Mean Platelet Volume 9.7 fL (7.4-10.4); Monocytes # (Auto) 0.25 K/mcL (0.10-0.90); Monocytes % (Auto) 4.6 % (1.0-12.0); Neutrophils % (Auto) 77.8 % (38.0-78.0); Platelet Count 382 K/mcL (140-440); RBC 6.05 M/mcL (4.63-6.08); Red Cell Distribution Width 13.4 % (11.5-14.5); WBC 5.5 K/mcL (4.5-11.0)
[2021-10-27 07:44] LABS: ALT/SGPT 43 U/L (<40); AST/SGOT 78 U/L (<40); Albumin 2.9 gm/dL (3.2-5.2); Alkaline Phosphatase 49 U/L (39-117); Bilirubin,Total 0.3 mg/dL (0.1-1.0); Blood Urea Nitrogen 22 mg/dL (8-23); Calcium 8.8 mg/dL (8.6-10.4); Carbon Dioxide 20 mmol/L (22-30); Chloride 99 mmol/L (96-108); Glomerular Filtration Rate 68; Glucose 81 mg/dL (70-105)
[2021-10-27] MEDS: ASCORBIC ACID 500 MG TABLET PO SCH ×2 (08:01→21:25)
[2021-10-27] MEDS: DOCUSATE SODIUM 100 MG CAPSULE PO SCH ×2 (08:01→21:24)
[2021-10-27] MEDS: MULTIVIT,THER IRON,CA,FA & MIN 1 TABLET PO SCH (08:01)
[2021-10-27] MEDS: FUROSEMIDE 20 MG/2 ML VIAL IV SCH (08:01)
[2021-10-27] MEDS: DEXAMETHASONE 4 MG TABLET PO SCH (08:01)
[2021-10-27] MEDS: ENOXAPARIN 30 MG/0.3 ML SYRINGE SQ SCH ×2 (08:02→21:24)
[2021-10-27] MEDS: VITAMIN D3 125 MCG TABLET PO SCH (08:04)
[2021-10-27] MEDS: POTASSIUM CITRATE 10 MEQ TAB.XL.24H PO SCH (08:04)
--- NOTE | 2021-10-27 08:54 | Internal Med Progress Note ---
SUBJECTIVE Subjective Patient information: Note initiated : 10/27/21 at 8:50 am Service Date, if different from initiated Date: [] Patient: Zac Farias a 66 y/o M admitted on 10/23/21 for shortness of breath. Chief Complaint: [CoVID pneumonia] Interval history: Interval history: Mr. Farias is a 66 year old M unvaccinated for Covid with who started experiencing URI symptoms roughly 10 days prior to presentation. He was tested positive for Covid 7 days ago. Has tried to work with the symptoms at home however became progressively short of breath, fatigued, tired and loss of appetite. He has not been able to eat or drink over the last few days. His symptoms have progressed to the point she could barely perform ADLs. He endorses to sick contact including his . He further endorses to increasing exertional dyspnea/cough/myalgias, headache but denies diarrhea, dysuria, hemoptysis, dysuria, joint pain or rash Initial work-up in the ER was consistent with multifocal chest infiltrates suggestive of COVID-19 pneumonia. On arrival patient sats low 80s requiring 6 L oxygen. Patient was started on dexamethasone. Subsequently hospitalist service was consulted. At the time of my evaluation patient is moderately distressed. He was able to answer most of the questions. He does not want to be initiated on remdesivir but consents for Actemra. 10/24-patient demonstrating dramatic clinical duration currently on 80% FiO2 50 L high flow, on dexamethasone, status post Actemra 10/23. Refusing remdesivir. Critically ill with PF ratio less than 100. Wants to be DNI. Continue ICU care, interval chest imaging/blood gas in 24 hours, on twice daily enoxaparin for thrombus prophylaxis, twice daily Lasix, creatinine at 1.1, no overnight telemetry events. Anxious and distressed, no other concerns expressed by nursing staff, ABG 7.3 over 80% FiO2 10/25-patient clinically deteriorating, high risk mortality now on 85% FiO2 at 40 L high flow. Continues to refuse remdesivir. Status post Actemra, on dexamethasone. On twice daily thromboprophylaxis/gentle diuresis to improve lung compliance. Discussed patient's clinical findings/with interval worsening of chest imaging. Check echocardiogram, white count 8.1, creatinine 1.3, elevated LDH. Remains critically ill, continue close hemodynamic monitoring in ICU 10/26-patient critically ill currently on 90% FiO2 40 L high flow nasal cannula oxygen. Interval worsening noted. On dexamethasone, refused remdesivir, status post Actemra. White count 6.3, renal function stable creatinine 1.4, feels fatigued lethargic. Tolerating diet. No telemetry events. No other concerns expressed by nursing staff. Reiterated overall grim prognosis to patient based on oxygen need and progression to ARDS . Blood gas 7.51/33/55 on 90% FiO2, PF less than 70 10/27: Afebrile overnight. Sputum cultures no growth to date. Proned 11 hour last night. Been on CPAP 12 cmH20 FiO2 60% overnight, now on high flow oxygen 50L/min FiO2 95%. c/o SOB. c/o productive cough with sputum production. Denies wheezing. Denies chest pain. Denies fever, chills, or sweating. s/p Actemra 10/23. Continue Dexamethasone. Agrees on trying Remdesivir. Constitutional Vitals: Vital Signs Temp Pulse Resp BP Pulse Ox 36.3 C 64 13 120/73 95 10/27/21 08:01 10/27/21 05:39 10/27/21 08:01 10/27/21 08:01 10/27/21 08:01 Period Temp Pulse Resp BP Sys/Sullivan Pulse Ox Last 24 Hr 36.1 C-36.5 C 64-81 100-136/66-95 90-99 Intake and Output 10/26/21 10/27/21 10/27/21 21:59 05:59 13:59 Intake Total 1200 Output Total 1400 525 200 Balance -200 -525 -200 Weight 96.887 kg Intake & Output: Intake & Output 10/26/21 10/27/21 10/27/21 21:59 05:59 13:59 Intake Total 1200 Output Total 1400 525 200 Balance -200 -525 -200 Weight 96.887 kg Intake: Oral 1200 Output: Void Amount 1400 525 200 Other: Meal Lunch Percent of Meal Consumed 100% Feeding Ability Independent Urine Appearance Clear Clear Clear Urine Color Dark Yellow Dark Yellow Dark Yellow General appearance: cooperative and mild distress Head Head exam: Present atraumatic and normal inspection Eye Eye exam: Present normal appearance ENT ENT exam: Present mucous membranes moist, normal exam and normal external ear exam Additional comments: High flow oxygen in place Neck Neck exam: Present normal inspection Respiratory Respiratory exam: Present decreased breath sounds and rhonchi; Absent CTAB or wheezes Cardiovascular Cardiovascular exam: Present normal rate and rhythm GI/Abdominal GI/Abdominal exam: Present normal bowel sounds Back Exam Back exam: Present normal inspection Neurological Exam Neurological exam: Present alert and oriented X3 Skin Skin exam: Present intact and warm OBJ DATA Labs CBC & Chem 7: 10/27/21 05:12 10/27/21 05:12 Labs: Abnormal Lab Results 10/27/21 10/27/21 10/26/21 05:12 05:12 05:24 WBC Hct 51.4 H Neut % (Auto) Lymph % (Auto) 12.8 L Centre % (Auto) Lymph # (Auto) 0.70 L D-Dimer Carbon Dioxide 20 L Anion Gap 17.0 H BUN 27 H Creatinine 1.4 H Glucose Magnesium AST 78 H ALT 43 H Lactate Dehydrogenase 432 H Albumin 2.9 L 3.0 L Albumin/Globulin Ratio 0.9 L Triglycerides 157 H 10/26/21 10/25/21 10/25/21 05:24 05:10 05:10 WBC Hct Neut % (Auto) 81.8 H Lymph % (Auto) 11.4 L Centre % (Auto) Lymph # (Auto) 0.72 L D-Dimer 1.21 H Carbon Dioxide 20 L Anion Gap BUN 25 H Creatinine 1.3 H Glucose 107 H Magnesium AST ALT Lactate Dehydrogenase 434 H Albumin 3.0 L Albumin/Globulin Ratio 0.9 L Triglycerides 10/25/21 10/24/21 10/24/21 05:10 05:38 05:38 WBC Hct Neut % (Auto) 85.8 H Lymph % (Auto) 7.9 L Centre % (Auto) Lymph # (Auto) 0.64 L D-Dimer 1.82 H Carbon Dioxide 21 L Anion Gap BUN Creatinine Glucose 127 H Magnesium 2.9 H AST ALT Lactate Dehydrogenase 405 H Albumin 2.9 L Albumin/Globulin Ratio 0.8 L Triglycerides 10/24/21 05:38 WBC 4.1 L Hct Neut % (Auto) Lymph % (Auto) 9.9 L Centre % (Auto) 12.1 H Lymph # (Auto) 0.40 L D-Dimer Carbon Dioxide Anion Gap BUN Creatinine Glucose Magnesium AST ALT Lactate Dehydrogenase Albumin Albumin/Globulin Ratio Triglycerides Meds: Medications Acetaminophen (Acetaminophen 325 Mg Tablet) 650 mg PO Q4-6HP PRN; Protocol PRN Reason: Per Pain Protocol/Fever > 101 Last Admin: 10/26/21 21:06 Dose: 650 mg Documented by: Ascorbic Acid (Ascorbic Acid 500 Mg Tablet) 1,000 mg PO BID [facility] Last Admin: 10/27/21 08:01 Dose: 1,000 mg Documented by: Budesonide (Budesonide 0.5 Mg/2 Ml Ampul.Neb) 0.5 mg NEB DAILYP PRN PRN Reason: Wheezing Last Admin: 10/24/21 17:39 Dose: 0.5 mg Documented by: Dexamethasone (Dexamethasone 4 Mg Tablet) 6 mg PO DAILY [facility] Last Admin: 10/27/21 08:01 Dose: 6 mg Documented by: Docusate Sodium (Docusate Sodium 100 Mg Capsule) 100 mg PO BID [facility] Last Admin: 10/27/21 08:01 Dose: 100 mg Documented by: Enoxaparin Sodium (Enoxaparin 30 Mg/0.3 Ml Syringe) 30 mg SQ BID [facility] Last Admin: 10/27/21 08:02 Dose: 30 mg Documented by: Furosemide (Furosemide 20 Mg/2 Ml Vial) 20 mg IV DAILY [facility] Last Admin: 10/27/21 08:01 Dose: 20 mg Documented by: Guaifenesin (Guaifenesin 100 Mg/5 Ml Oral Dianne) 100 mg PO Q4HP PRN PRN Reason: Congestion Last Admin: 10/26/21 10:51 Dose: 100 mg Documented by: Acetaminophen (Ofirmev) 650 mg in 65 mls @ 130 mls/hr IV Q6HP PRN; Protocol PRN Reason: Per Pain Protocol/Fever > 101 Last Infusion: 10/26/21 11:30 Dose: Infused Documented by: Magnesium Sulfate (Magnesium Sulfate) 2 gm in 50 mls @ 50 mls/hr IV UD PRN PRN Reason: MG = or < 1.7 Potassium Chloride 40 meq/ (Dextrose) 520 mls @ 130 mls/hr IV UD PRN PRN Reason: K+ = or < 3.5 REMDESIVIR 200 mg/ Sodium (Chloride) 250 mls @ 500 mls/hr IV ONCE ONE Stop: 10/27/21 08:50 REMDESIVIR 100 mg/ Sodium (Chloride) 250 mls @ 500 mls/hr IV Q24H [facility] Stop: 10/31/21 09:01 Iron Carb/Multivit/Transit Survey Worker/Folic Acid (Multivit,Ther Iron,Ca,Fa & Min 1 Tablet) 1 tab PO DAILY [facility] Last Admin: 10/27/21 08:01 Dose: 1 tab Documented by: Lorazepam (Lorazepam 2 Mg/Ml Vial) 0.5 mg IV Q12 PRN PRN Reason: ANXIETY/SEDATION Last Admin: 10/26/21 20:56 Dose: 0.5 mg Documented by: Melatonin (Melatonin 3 Mg Tablet) 3 mg PO HSP PRN PRN Reason: Insomnia Ondansetron HCl (Ondansetron 4 Mg/2 Ml Vial) 4 mg IV Q4-6HP PRN; Protocol PRN Reason: Nausea And Vomiting Last Admin: 10/25/21 01:50 Dose: 4 mg Documented by: Potassium Chloride (Potassium Chloride 20 Meq Packet) 40 meq PO DAILYP PRN PRN Reason: K+ < 3.5 Potassium Citrate (Potassium Citrate 10 Meq Tab.Xl.24h) 10 meq PO QDAY [facility] Last Admin: 10/27/21 08:04 Dose: 10 meq Documented by: Senna/Docusate Sodium (Sennosides/Docusate Sodium 1 Tab Tablet) 1 tab PO HS [facility] Last Admin: 10/26/21 20:55 Dose: 1 tab Documented by: Sodium Chloride (0.9 % Sodium Chloride 10 Ml Syringe) 10 ml IV Q8 [facility] Last Admin: 10/27/21 08:02 Dose: 10 ml Documented by: Vitamin D (Vitamin D3 5,000 Unit Tablet) 5,000 unit PO DAILY [facility] Last Admin: 10/27/21 08:04 Dose: 5,000 unit Documented by: A/P Assessment and plan (1) COVID-19: Status: Acute (2) Acute respiratory failure with hypoxia: Status: Acute (3) Essential hypertension: Status: Chronic Comment: Last 2 blood pressure readings in the EMR are elevated above 140/80 At follow-up we will decide on initial treatment with probably a low-sodium diet and thiazide if indicated for his nephrolithiasis as well (4) Benign hypertension with CKD (chronic kidney disease) stage III: Status: Chronic Comment: Currently diet and exercise, no Rx Narrative A/P Narrative: Assessment and Plans: 1. CoVID pneumonia with acute respiratory failure with hypoxia: Stays in inpatient PCU with telemetry Isolation: airborne and contact s/p Actemra on 10/23 Continue Dexamethasone Start Remdesivir; daily LFTs to monitor liver fuctions Supplemental oxygen therapy titrate to achieve spo2>=92%, currently on high flow oxygen 50L/min FiO2 95% Prone 16hr/day or as much as patient could tolerated Gentle diuretics with Lasix Lovenox Tylenol PRN fever Robitussin PRN cough DuoNEB NEB PRN SOB or wheezing ABG today CXR every few days cbc w/ auto diff in the morning to trend WBC 2. Essential HTN: Currently normotensive Continue gentle diuretics with Lasix IV 3. h/o chronic kidney disease: Serum Cr level 1.1 today Avoid nephrotoxic agents Saline lock with gentle diuretics Lasix IV CMP in the morning to trend kidney functions GI ppx: not currently indicated DVT ppx: Lovenox Code status: DNI Prognosis: extremely guarded Disposition: inpatient PCU with telemetry Time Spent With Patient Time: Total time spent is greater than 50% in coordination of care (as documented) at patient's floor/unit and/or counseling patient: Total time spent with greater than 50% in coordination of care (as documented) at patient's floor/unit and/or counseling patient:: Greater than 35 minutes QUALITY VTE Deep Vein Thrombosis/Pulmonary Embolism Present on Admission: No
[2021-10-27] MEDS ORDERED: IPRATROPIUM/ALBUTEROL 3 ML AMPUL.NEB NEB PRN (08:55)
[2021-10-27] MEDS ORDERED: REMDESIVIR 200 MG in 0.9 % SODIUM CHLORIDE 250 ML IV ONE (09:00)
[2021-10-27] MEDS ORDERED: POLYETHYLENE GLYCOL 3350 17 GM PACKET PO PRN (09:39)
[2021-10-27] MEDS ORDERED: ACETAMINOPHEN 325 MG TABLET PO PRN (19:03)
[2021-10-27] MEDS: SENNOSIDES/DOCUSATE SODIUM 1 TAB TABLET PO SCH (21:24)
[2021-10-27] MEDS: LORazepam 2 MG/ML VIAL IV PRN (21:25)
[2021-10-28] MEDS: LORazepam 2 MG/ML VIAL IV PRN ×2 (03:43→20:22)
[2021-10-28] MEDS: 0.9 % SODIUM CHLORIDE 10 ML SYRINGE IV SCH ×4 (05:33→20:19)
[2021-10-28 06:49] LABS: Basophils # (Auto) 0.12 K/mcL (0.00-0.30); Basophils % (Auto) 1.8 % (0.0-2.0); Eosinophils # (Auto) 0.25 K/mcL (0.00-0.70); Eosinophils % (Auto) 3.6 % (0.0-7.0); Hematocrit 49.1 % (40.1-51.0); Hemoglobin 15.7 g/dL (13.7-17.5); Lymphocytes % (Auto) 13.1 % (15.5-49.0); Mean Cell Volume 84.2 fL (80.0-100.0); Mean Platelet Volume 9.1 fL (7.4-10.4); Monocytes # (Auto) 0.45 K/mcL (0.10-0.90); Monocytes % (Auto) 6.6 % (1.0-12.0); Neutrophils % (Auto) 74.9 % (38.0-78.0); Platelet Count 428 K/mcL (140-440); RBC 5.83 M/mcL (4.63-6.08); Red Cell Distribution Width 13.4 % (11.5-14.5); WBC 6.9 K/mcL (4.5-11.0)
[2021-10-28 07:04] LABS: ALT/SGPT 218 U/L (<40); AST/SGOT 277 U/L (<40); Albumin 2.9 gm/dL (3.2-5.2); Alkaline Phosphatase 48 U/L (39-117); Bilirubin,Total 0.3 mg/dL (0.1-1.0); Blood Urea Nitrogen 22 mg/dL (8-23); Carbon Dioxide 24 mmol/L (22-30); Chloride 96 mmol/L (96-108); Globulin 2.8 gm/dL (2.2-3.7); Glomerular Filtration Rate 68; Glucose 94 mg/dL (70-105)
[2021-10-28] MEDS: DEXAMETHASONE 4 MG TABLET PO SCH (08:00)
[2021-10-28] MEDS: ASCORBIC ACID 500 MG TABLET PO SCH ×2 (08:01→20:19)
[2021-10-28] MEDS: MULTIVIT,THER IRON,CA,FA & MIN 1 TABLET PO SCH (08:01)
[2021-10-28] MEDS: POTASSIUM CITRATE 10 MEQ TAB.XL.24H PO SCH (08:01)
[2021-10-28] MEDS: VITAMIN D3 125 MCG TABLET PO SCH (08:01)
[2021-10-28] MEDS: DOCUSATE SODIUM 100 MG CAPSULE PO SCH ×2 (08:01→20:18)
[2021-10-28] MEDS: ENOXAPARIN 30 MG/0.3 ML SYRINGE SQ SCH ×2 (08:01→20:19)
[2021-10-28] MEDS: FUROSEMIDE 20 MG/2 ML VIAL IV SCH (08:01)
[2021-10-28] MEDS ORDERED: REMDESIVIR 100 MG in 0.9 % SODIUM CHLORIDE 250 ML IV SCH (09:00)
[2021-10-28] MEDS ORDERED: LACTULOSE 20 GM/30 ML ORAL.SOL PO PRN (09:28)
[2021-10-28] MEDS ORDERED: MAGNESIUM HYDROXIDE 30 ML ORAL.SUSP PO PRN (09:28)
[2021-10-28] MEDS ORDERED: POLYETHYLENE GLYCOL 3350 17 GM PACKET PO PRN (09:28)
--- NOTE | 2021-10-28 09:34 | Internal Med Progress Note ---
SUBJECTIVE Subjective Patient information: Note initiated : 10/28/21 at 9:30 am Service Date, if different from initiated Date: [] Patient: Zac Farias a 66 y/o M admitted on 10/23/21 for shortness of breath. Chief Complaint: [] Interval history: Interval history: Mr. Farias is a 66 year old M unvaccinated for Covid with who started experie ncing URI symptoms roughly 10 days prior to presentation. He was tested positive for Covid 7 days ago. Has tried to work with the symptoms at home however became progressively short of breath, fatigued, tired and loss of appetite. He has not been able to eat or drink over the last few days. His symptoms have progressed to the point she could barely perform ADLs. He endorses to sick contact including his . He further endorses to increasing exertional dyspnea/cough/myalgias, headache but denies diarrhea, dysuria, hemoptysis, dysuria, joint pain or rash Initial work-up in the ER was consistent with multifocal chest infiltrates suggestive of COVID-19 pneumonia. On arrival patient sats low 80s requiring 6 L oxygen. Patient was started on dexamethasone. Subsequently hospitalist ryan monzon was consulted. At the time of my evaluation patient is moderately distressed. He was able to answer most of the questions. He does not want to be initiated on remdesivir but consents for Actemra. 10/24-patient demonstrating dramatic clinical duration currently on 80% FiO2 50 L high flow, on dexamethasone, status post Actemra 10/23. Refusing remdesivir. Critically ill with PF ratio less than 100. Wants to be DNI. Continue ICU care, interval chest imaging/blood gas in 24 hours, on twice daily enoxaparin for thrombus prophylaxis, twice daily Lasix, creatinine at 1.1, no overnight te lemetry events. Anxious and distressed, no other concerns expressed by nursing staff, ABG 7.3 over 80% FiO2 10/25-patient clinically deteriorating, high risk mortality now on 85% FiO2 at 40 L high flow. Continues to refuse remdesivir. Status post Actemra, on dexamethasone. On twice daily thromboprophylaxis/gentle diuresis to improve lung compliance. Discussed patient's clinical findings/with interval worsening of chest imaging. Check echocardiogram, white count 8.1, creatinine 1.3, elevated LDH. Remains critically ill, continue close hemodynamic monitoring in ICU 10/26-patient critically ill currently on 90% FiO2 40 L high flow nasal cannula oxygen. Interval worsening noted. On dexamethasone, refused remdesivir, status post Actemra. White count 6.3, renal function stable creatinine 1.4, feels fatigued lethargic. Tolerating diet. No telemetry events. No other concerns expressed by nursing staff. Reiterated overall grim prognosis to patient based on oxygen need and progression to ARDS . Blood gas 7.51/33/55 on 90% FiO2, PF less than 70 10/27: Afebrile overnight. Sputum cultures no growth to date. Proned 11 hour last night. Been on CPAP 12 cmH20 FiO2 60% overnight, now on high flow oxygen 50L/min FiO2 95%. c/o SOB. c/o productive cough with sputum production. Denies wheezing. Denies chest pain. Denies fever, chills, or sweating. s/p Actemra 10/23. Continue Dexamethasone. Agrees on trying Remdesivir. 10/28: Afebrile overnight. Been prone overnight with CPAP on. Sputum cultures no growth to date. Currently on high flow oxygen 50L/min, FiO2 65%. LFTs went up to the 200s, decided to stop Remdesivir. c/o mild SOB. c/o nonproductive cough. c/o wheezing. Denies chest pain. Denies anxiety. Denies fever, chills, or sweating. s/p Actemra 10/23. Continue Dexamethasone. Constitutional Vitals: Vital Signs Temp Pulse Resp BP Pulse Ox 36.3 C 64 20 105/78 91 10/28/21 08:01 10/28/21 07:10 10/28/21 08:01 10/28/21 08:01 10/28/21 08:01 Period Temp Pulse Resp BP Sys/Sullivan Pulse Ox Last 24 Hr 36.2 C-36.7 C 62-71 13-26 97-139/62-89 90-100 Intake and Output 10/27/21 10/28/21 10/28/21 21:59 05:59 13:59 Intake Total 720 480 Output Total 500 350 300 Balance 220 130 -300 Weight 99.609 kg Intake & Output: Intake & Output 10/27/21 10/28/21 10/28/21 21:59 05:59 13:59 Intake Total 720 480 Output Total 500 350 300 Balance 220 130 -300 Weight 99.609 kg Intake: Oral 720 480 Output: Void Amount 500 350 300 Other: Meal Dinner Percent of Meal Consumed 50% Urine Appearance Clear Clear Clear Urine Color Bright Yellow Dark Yellow Bright Yellow Urine Odor Normal General appearance: cooperative and moderate distress Head Head exam: Present atraumatic and normal inspection Eye Eye exam: Present normal appearance ENT ENT exam: Present mucous membranes moist, normal exam and normal external ear exam Additional comments: High flow oxygen in place Neck Neck exam: Present normal inspection Respiratory Respiratory exam: Present decreased breath sounds, rhonchi and wheezes Cardiovascular Cardiovascular exam: Present normal rate and rhythm GI/Abdominal GI/Abdominal exam: Present normal bowel sounds Back Exam Back exam: Present normal inspection Neurological Exam Neurological exam: Present alert and oriented X3 Skin Skin exam: Present intact and warm OBJ DATA Labs CBC & Chem 7: 10/28/21 05:11 10/28/21 05:11 Labs: Abnormal Lab Results 10/28/21 10/28/21 10/27/21 05:11 05:11 05:12 Hct Neut % (Auto) Lymph % (Auto) 13.1 L Lymph # (Auto) 0.90 L Carbon Dioxide 20 L Anion Gap 17.0 H BUN Creatinine AST 277 H 78 H ALT 218 H 43 H Lactate Dehydrogenase Total Protein 5.7 L Albumin 2.9 L 2.9 L Albumin/Globulin Ratio Triglycerides 10/27/21 10/26/21 10/26/21 05:12 05:24 05:24 Hct 51.4 H Neut % (Auto) 81.8 H Lymph % (Auto) 12.8 L 11.4 L Lymph # (Auto) 0.70 L 0.72 L Carbon Dioxide Anion Gap BUN 27 H Creatinine 1.4 H AST ALT Lactate Dehydrogenase 432 H Total Protein Albumin 3.0 L Albumin/Globulin Ratio 0.9 L Triglycerides 157 H Meds: Medications Acetaminophen (Acetaminophen 325 Mg Tablet) 650 mg PO Q6HP PRN; Protocol PRN Reason: Per Pain Protocol/Fever > 101 Last Admin: 10/27/21 21:24 Dose: 650 mg Documented by: Albuterol/Ipratropium (Ipratropium/Albuterol 3 Ml Ampul.Neb) 3 ml NEB Q4HP PRN PRN Reason: Shortness Of Breath Ascorbic Acid (Ascorbic Acid 500 Mg Tablet) 1,000 mg PO BID [facility] Last Admin: 10/28/21 08:01 Dose: 1,000 mg Documented by: Budesonide (Budesonide 0.5 Mg/2 Ml Ampul.Neb) 0.5 mg NEB DAILYP PRN PRN Reason: Wheezing Last Admin: 10/24/21 17:39 Dose: 0.5 mg Documented by: Dexamethasone (Dexamethasone 4 Mg Tablet) 6 mg PO DAILY [facility] Last Admin: 10/28/21 08:00 Dose: 6 mg Documented by: Docusate Sodium (Docusate Sodium 100 Mg Capsule) 100 mg PO BID [facility] Last Admin: 10/28/21 08:01 Dose: 100 mg Documented by: Enoxaparin Sodium (Enoxaparin 30 Mg/0.3 Ml Syringe) 30 mg SQ BID [facility] Last Admin: 10/28/21 08:01 Dose: 30 mg Documented by: Furosemide (Furosemide 20 Mg/2 Ml Vial) 20 mg IV DAILY [facility] Last Admin: 10/28/21 08:01 Dose: 20 mg Documented by: Guaifenesin (Guaifenesin 100 Mg/5 Ml Oral Dianne) 100 mg PO Q4HP PRN PRN Reason: Congestion Last Admin: 10/26/21 10:51 Dose: 100 mg Documented by: Acetaminophen (Ofirmev) 650 mg in 65 mls @ 130 mls/hr IV Q6HP PRN; Protocol PRN Reason: Per Pain Protocol/Fever > 101 Last Infusion: 10/26/21 11:30 Dose: Infused Documented by: Magnesium Sulfate (Magnesium Sulfate) 2 gm in 50 mls @ 50 mls/hr IV UD PRN PRN Reason: MG = or < 1.7 Potassium Chloride 40 meq/ (Dextrose) 520 mls @ 130 mls/hr IV UD PRN PRN Reason: K+ = or < 3.5 Iron Carb/Multivit/Hart/Folic Acid (Multivit,Ther Iron,Ca,Fa & Min 1 Tablet) 1 tab PO DAILY [facility] Last Admin: 10/28/21 08:01 Dose: 1 tab Documented by: Lactulose (Lactulose 20 Gm/30 Ml Oral.Dianne) 10 gm PO DAILYP PRN PRN Reason: Constipation Lorazepam (Lorazepam 2 Mg/Ml Vial) 0.5 mg IV Q6HP PRN PRN Reason: ANXIETY/SEDATION Last Admin: 10/28/21 03:43 Dose: 0.5 mg Documented by: Magnesium Hydroxide (Magnesium Hydroxide 30 Ml Oral.Susp) 30 ml PO BIDP PRN PRN Reason: Constipation Melatonin (Melatonin 3 Mg Tablet) 3 mg PO HSP PRN PRN Reason: Insomnia Ondansetron HCl (Ondansetron 4 Mg/2 Ml Vial) 4 mg IV Q4-6HP PRN; Protocol PRN Reason: Nausea And Vomiting Last Admin: 10/25/21 01:50 Dose: 4 mg Documented by: Polyethylene Glycol (Polyethylene Glycol 3350 17 Gm Packet) 17 gm PO DAILYP PRN PRN Reason: Constipation Last Admin: 10/27/21 21:25 Dose: 17 gm Documented by: Polyethylene Glycol (Polyethylene Glycol 3350 17 Gm Packet) 17 gm PO DAILYP PRN PRN Reason: Constipation Potassium Chloride (Potassium Chloride 20 Meq Packet) 40 meq PO DAILYP PRN PRN Reason: K+ < 3.5 Potassium Citrate (Potassium Citrate 10 Meq Tab.Xl.24h) 10 meq PO QDAY [facility] Last Admin: 10/28/21 08:01 Dose: 10 meq Documented by: Senna/Docusate Sodium (Sennosides/Docusate Sodium 1 Tab Tablet) 1 tab PO HS [facility] Last Admin: 10/27/21 21:24 Dose: 1 tab Documented by: Sodium Chloride (0.9 % Sodium Chloride 10 Ml Syringe) 10 ml IV Q8 [facility] Last Admin: 10/28/21 08:01 Dose: 10 ml Documented by: Vitamin D (Vitamin D3 5,000 Unit Tablet) 5,000 unit PO DAILY [facility] Last Admin: 10/28/21 08:01 Dose: 5,000 unit Documented by: A/P Assessment and plan (1) COVID-19: Status: Acute (2) Acute respiratory failure with hypoxia: Status: Acute (3) Essential hypertension: Status: Chronic Comment: Last 2 blood pressure readings in the EMR are elevated above 140/80 At follow-up we will decide on initial treatment with probably a low-sodium diet and thiazide if indicated for his nephrolithiasis as well (4) Benign hypertension with CKD (chronic kidney disease) stage III: Status: Chronic Comment: Currently diet and exercise, no Rx (5) Constipation: Status: Acute Narrative A/P Narrative: Assessment and Plans: 1. CoVID pneumonia with acute respiratory failure with hypoxia: Stays in inpatient PCU with telemetry Isolation: airborne and contact s/p Actemra on 10/23 Continue Dexamethasone d/c Remdesivir due to rising LFTs Supplemental oxygen therapy titrate to achieve spo2>=92%, currently on high flow oxygen 50L/min FiO2 65% Prone 16hr/day or as much as patient could tolerated Gentle diuretics with Lasix Lovenox Tylenol PRN fever Robitussin PRN cough DuoNEB NEB PRN SOB or wheezing CXR every few days cbc w/ auto diff in the morning to trend WBC 2. Essential HTN: Currently normotensive Continue gentle diuretics with Lasix IV 3. h/o chronic kidney disease: Serum Cr level 1.1 today Avoid nephrotoxic agents Saline lock with gentle diuretics Lasix IV CMP in the morning to trend kidney functions 4. Constipation: Colace Senna Miralax PRN constipation Lactulose PRN constipation Milk of Magnesia PRN constipation GI ppx: not currently indicated DVT ppx: Lovenox Code status: DNI Prognosis: extremely guarded Disposition: inpatient PCU with telemetry Time Spent With Patient Time: Total time spent is greater than 50% in coordination of care (as documented) at patient's floor/unit and/or counseling patient: Total time spent with greater than 50% in coordination of care (as documented) at patient's floor/unit and/or counseling patient:: Greater than 35 minutes QUALITY VTE Deep Vein Thrombosis/Pulmonary Embolism Present on Admission: No
[2021-10-28] MEDS: MELATONIN 3 MG TABLET PO PRN (20:19)
[2021-10-28] MEDS: SENNOSIDES/DOCUSATE SODIUM 1 TAB TABLET PO SCH (20:19)
[2021-10-29] MEDS: 0.9 % SODIUM CHLORIDE 10 ML SYRINGE IV SCH ×3 (05:41→22:26)
[2021-10-29 06:29] LABS: Basophils # (Auto) 0.09 K/mcL (0.00-0.30); Eosinophils # (Auto) 0.24 K/mcL (0.00-0.70); Eosinophils % (Auto) 2.7 % (0.0-7.0); Hematocrit 47.7 % (40.1-51.0); Hemoglobin 15.6 g/dL (13.7-17.5); Lymphocytes # (Auto) 1.36 K/mcL (1.50-4.80); Lymphocytes % (Auto) 15.2 % (15.5-49.0); Mean Corpuscular HGB Conc 32.7 g/dL (31.0-36.0); Mean Platelet Volume 9.7 fL (7.4-10.4); Monocytes # (Auto) 0.73 K/mcL (0.10-0.90); Monocytes % (Auto) 8.2 % (1.0-12.0); Neutrophils % (Auto) 72.9 % (38.0-78.0); Platelet Count 472 K/mcL (140-440); RBC 5.68 M/mcL (4.63-6.08); Red Cell Distribution Width 13.6 % (11.5-14.5)
[2021-10-29 06:55] LABS: ALT/SGPT 276 U/L (<40); AST/SGOT 222 U/L (<40); Albumin 3.1 gm/dL (3.2-5.2); Albumin/Globulin Ratio 1.1 (1.0-2.3); Alkaline Phosphatase 55 U/L (39-117); Bilirubin,Total 0.3 mg/dL (0.1-1.0); Blood Urea Nitrogen 24 mg/dL (8-23); Calcium 8.9 mg/dL (8.6-10.4); Carbon Dioxide 26 mmol/L (22-30); Chloride 99 mmol/L (96-108); Globulin 2.7 gm/dL (2.2-3.7); Glomerular Filtration Rate 68; Glucose 106 mg/dL (70-105)
[2021-10-29] MEDS: DOCUSATE SODIUM 100 MG CAPSULE PO SCH ×2 (08:57→20:58)
[2021-10-29] MEDS: DEXAMETHASONE 4 MG TABLET PO SCH (08:58)
[2021-10-29] MEDS: ENOXAPARIN 30 MG/0.3 ML SYRINGE SQ SCH ×2 (08:58→20:58)
[2021-10-29] MEDS: FUROSEMIDE 20 MG/2 ML VIAL IV SCH (08:58)
[2021-10-29] MEDS: VITAMIN D3 125 MCG TABLET PO SCH (08:59)
[2021-10-29] MEDS: MULTIVIT,THER IRON,CA,FA & MIN 1 TABLET PO SCH (08:59)
[2021-10-29] MEDS: POTASSIUM CITRATE 10 MEQ TAB.XL.24H PO SCH (08:59)
[2021-10-29] MEDS: ASCORBIC ACID 500 MG TABLET PO SCH ×2 (08:59→20:58)
--- NOTE | 2021-10-29 09:21 | Internal Med Progress Note ---
SUBJECTIVE Subjective Patient information: Note initiated : 10/29/21 at 9:17 am Service Date, if different from initiated Date: [] Patient: Zac Farias a 66 y/o M admitted on 10/23/21 for shortness of breath. Chief Complaint: [CoVID pneumonia] Interval history: Interval history: Mr. Farias is a 66 year old M unvaccinated for Covid with who started experiencing URI symptoms roughly 10 days prior to presentation. He was tested positive for Covid 7 days ago. Has tried to work with the symptoms at home however became progressively short of breath, fatigued, tired and loss of appetite. He has not been able to eat or drink over the last few days. His symptoms have progressed to the point she could barely perform ADLs. He endorses to sick contact including his . He further endorses to increasing exertional dyspnea/cough/myalgias, headache but denies diarrhea, dysuria, hemoptysis, dysuria, joint pain or rash Initial work-up in the ER was consistent with multifocal chest infiltrates suggestive of COVID-19 pneumonia. On arrival patient sats low 80s requiring 6 L oxygen. Patient was started on dexamethasone. Subsequently hospitalist service was consulted. At the time of my evaluation patient is moderately distressed. He was able to answer most of the questions. He does not want to be initiated on remdesivir but consents for Actemra. 10/24-patient demonstrating dramatic clinical duration currently on 80% FiO2 50 L high flow, on dexamethasone, status post Actemra 10/23. Refusing remdesivir. Critically ill with PF ratio less than 100. Wants to be DNI. Continue ICU care, interval chest imaging/blood gas in 24 hours, on twice daily enoxaparin for thrombus prophylaxis, twice daily Lasix, creatinine at 1.1, no overnight telemetry events. Anxious and distressed, no other concerns expressed by nursing staff, ABG 7.3 over 80% FiO2 10/25-patient clinically deteriorating, high risk mortality now on 85% FiO2 at 40 L high flow. Continues to refuse remdesivir. Status post Actemra, on dexamethasone. On twice daily thromboprophylaxis/gentle diuresis to improve lung compliance. Discussed patient's clinical findings/with interval worsening of chest imaging. Check echocardiogram, white count 8.1, creatinine 1.3, elevated LDH. Remains critically ill, continue close hemodynamic monitoring in ICU 10/26-patient critically ill currently on 90% FiO2 40 L high flow nasal cannula oxygen. Interval worsening noted. On dexamethasone, refused remdesivir, status post Actemra. White count 6.3, renal function stable creatinine 1.4, feels fatigued lethargic. Tolerating diet. No telemetry events. No other concerns expressed by nursing staff. Reiterated overall grim prognosis to patient based on oxygen need and progression to ARDS . Blood gas 7.51/33/55 on 90% FiO2, PF less than 70 10/27: Afebrile overnight. Sputum cultures no growth to date. Proned 11 hour last night. Been on CPAP 12 cmH20 FiO2 60% overnight, now on high flow oxygen 50L/min FiO2 95%. c/o SOB. c/o productive cough with sputum production. Denies wheezing. Denies chest pain. Denies fever, chills, or sweating. s/p Actemra 10/23. Continue Dexamethasone. Agrees on trying Remdesivir. 10/28: Afebrile overnight. Been prone overnight with CPAP on. Sputum cultures no growth to date. Currently on high flow oxygen 50L/min, FiO2 65%. LFTs went up to the 200s, decided to stop Remdesivir. c/o mild SOB. c/o nonproductive cough. c/o wheezing. Denies chest pain. Denies anxiety. Denies fever, chills, or sweating. s/p Actemra 10/23. Continue Dexamethasone. 10/29: Afebrile overnight. Had a large bowel movement overnight. Been prone 6 hour overnight with CPAP. Currently on 6L/min high flow oxygen. Sputum cultures no growth to date. Denies SOB. c/o productive cough with sputum production. Denies wheezing. Denies chest pain. Denies anxiety. Denies fever, chills, or sweating. s/p Actemra 10/23. Continue Dexamethasone. Constitutional Vitals: Vital Signs Temp Pulse Resp BP Pulse Ox 36.3 C 68 20 117/83 92 10/29/21 08:01 10/29/21 08:00 10/29/21 08:01 10/29/21 08:01 10/29/21 08:01 Period Temp Pulse Resp BP Sys/Sullivan Pulse Ox Last 24 Hr 36.2 C-36.8 C 57-86 13- 86-140/55-96 85-98 Intake and Output 10/28/21 10/29/21 10/29/21 21:59 05:59 13:59 Intake Total 1110 700 Output Total 875 675 200 Balance 235 25 -200 Weight 100.289 kg Intake & Output: Intake & Output 10/28/21 10/29/21 10/29/21 21:59 05:59 13:59 Intake Total 1110 700 Output Total 875 675 200 Balance 235 25 -200 Weight 100.289 kg Intake: Oral 1110 700 Output: Void Amount 875 675 200 Other: Meal Dinner Percent of Meal Consumed 100% Feeding Ability Independent Urine Appearance Clear Clear Clear Urine Color Straw Straw Light Amy Urine Odor Normal Stool Size Large Stool Color Brown Stool Consistency Loose # Voids 1 # Bowel Movements 1 General appearance: average body habitus, cooperative and moderate distress Head Head exam: Present atraumatic and normal inspection Eye Eye exam: Present normal appearance ENT ENT exam: Present mucous membranes moist, normal exam and normal external ear exam Additional comments: High flow oxygen in place Neck Neck exam: Present normal inspection Respiratory Respiratory exam: Present rhonchi; Absent accessory muscle use Cardiovascular Cardiovascular exam: Present normal rate and rhythm GI/Abdominal GI/Abdominal exam: Present normal bowel sounds Back Exam Back exam: Present normal inspection Neurological Exam Neurological exam: Present alert and oriented X3 Skin Skin exam: Present intact and warm OBJ DATA Labs CBC & Chem 7: 10/29/21 04:56 10/29/21 04:56 Labs: Abnormal Lab Results 10/29/21 10/29/21 10/28/21 04:56 04:56 05:11 Hct Plt Count 472 H Lymph % (Auto) 15.2 L Lymph # (Auto) 1.36 L Carbon Dioxide Anion Gap BUN 24 H Glucose 106 H AST 222 H 277 H ALT 276 H 218 H Total Protein 5.8 L 5.7 L Albumin 3.1 L 2.9 L 10/28/21 10/27/21 10/27/21 05:11 05:12 05:12 Hct 51.4 H Plt Count Lymph % (Auto) 13.1 L 12.8 L Lymph # (Auto) 0.90 L 0.70 L Carbon Dioxide 20 L Anion Gap 17.0 H BUN Glucose AST 78 H ALT 43 H Total Protein Albumin 2.9 L Meds: Medications Acetaminophen (Acetaminophen 325 Mg Tablet) 650 mg PO Q6HP PRN; Protocol PRN Reason: Per Pain Protocol/Fever > 101 Last Admin: 10/27/21 21:24 Dose: 650 mg Documented by: Albuterol/Ipratropium (Ipratropium/Albuterol 3 Ml Ampul.Neb) 3 ml NEB Q4HP PRN PRN Reason: Shortness Of Breath Ascorbic Acid (Ascorbic Acid 500 Mg Tablet) 1,000 mg PO BID [facility] Last Admin: 10/29/21 08:59 Dose: 1,000 mg Documented by: Budesonide (Budesonide 0.5 Mg/2 Ml Ampul.Neb) 0.5 mg NEB DAILYP PRN PRN Reason: Wheezing Last Admin: 10/24/21 17:39 Dose: 0.5 mg Documented by: Dexamethasone (Dexamethasone 4 Mg Tablet) 6 mg PO DAILY [facility] Last Admin: 10/29/21 08:58 Dose: 6 mg Documented by: Docusate Sodium (Docusate Sodium 100 Mg Capsule) 100 mg PO BID [facility] Last Admin: 10/29/21 08:57 Dose: 100 mg Documented by: Enoxaparin Sodium (Enoxaparin 30 Mg/0.3 Ml Syringe) 30 mg SQ BID [facility] Last Admin: 10/29/21 08:58 Dose: 30 mg Documented by: Furosemide (Furosemide 20 Mg/2 Ml Vial) 20 mg IV DAILY [facility] Last Admin: 10/29/21 08:58 Dose: 20 mg Documented by: Guaifenesin (Guaifenesin 100 Mg/5 Ml Oral Dianne) 100 mg PO Q4HP PRN PRN Reason: Congestion Last Admin: 10/26/21 10:51 Dose: 100 mg Documented by: Acetaminophen (Ofirmev) 650 mg in 65 mls @ 130 mls/hr IV Q6HP PRN; Protocol PRN Reason: Per Pain Protocol/Fever > 101 Last Infusion: 10/26/21 11:30 Dose: Infused Documented by: Magnesium Sulfate (Magnesium Sulfate) 2 gm in 50 mls @ 50 mls/hr IV UD PRN PRN Reason: MG = or < 1.7 Potassium Chloride 40 meq/ (Dextrose) 520 mls @ 130 mls/hr IV UD PRN PRN Reason: K+ = or < 3.5 Iron Carb/Multivit/[employer]/Folic Acid (Multivit,Ther Iron,Ca,Fa & Min 1 Tablet) 1 tab PO DAILY [facility] Last Admin: 10/29/21 08:59 Dose: 1 tab Documented by: Lactulose (Lactulose 20 Gm/30 Ml Oral.Dianne) 10 gm PO DAILYP PRN PRN Reason: Constipation Last Admin: 10/28/21 09:39 Dose: 10 gm Documented by: Lorazepam (Lorazepam 2 Mg/Ml Vial) 0.5 mg IV Q6HP PRN PRN Reason: ANXIETY/SEDATION Last Admin: 10/28/21 20:22 Dose: 0.5 mg Documented by: Magnesium Hydroxide (Magnesium Hydroxide 30 Ml Oral.Susp) 30 ml PO BIDP PRN PRN Reason: Constipation Last Admin: 10/28/21 16:03 Dose: 30 ml Documented by: Melatonin (Melatonin 3 Mg Tablet) 3 mg PO HSP PRN PRN Reason: Insomnia Last Admin: 10/28/21 20:19 Dose: 3 mg Documented by: Ondansetron HCl (Ondansetron 4 Mg/2 Ml Vial) 4 mg IV Q4-6HP PRN; Protocol PRN Reason: Nausea And Vomiting Last Admin: 10/25/21 01:50 Dose: 4 mg Documented by: Polyethylene Glycol (Polyethylene Glycol 3350 17 Gm Packet) 17 gm PO DAILYP PRN PRN Reason: Constipation Last Admin: 10/27/21 21:25 Dose: 17 gm Documented by: Potassium Chloride (Potassium Chloride 20 Meq Packet) 40 meq PO DAILYP PRN PRN Reason: K+ < 3.5 Potassium Citrate (Potassium Citrate 10 Meq Tab.Xl.24h) 10 meq PO QDAY [facility] Last Admin: 10/29/21 08:59 Dose: 10 meq Documented by: Senna/Docusate Sodium (Sennosides/Docusate Sodium 1 Tab Tablet) 1 tab PO HS [facility] Last Admin: 10/28/21 20:19 Dose: Not Given Documented by: Sodium Chloride (0.9 % Sodium Chloride 10 Ml Syringe) 10 ml IV Q8 [facility] Last Admin: 10/29/21 05:41 Dose: 10 ml Documented by: Vitamin D (Vitamin D3 5,000 Unit Tablet) 5,000 unit PO DAILY [facility] Last Admin: 10/29/21 08:59 Dose: 5,000 unit Documented by: A/P Assessment and plan (1) COVID-19: Status: Acute (2) Acute respiratory failure with hypoxia: Status: Acute (3) Essential hypertension: Status: Chronic Comment: Last 2 blood pressure readings in the EMR are elevated above 140/80 At follow-up we will decide on initial treatment with probably a low-sodium diet and thiazide if indicated for his nephrolithiasis as well (4) Benign hypertension with CKD (chronic kidney disease) stage III: Status: Chronic Comment: Currently diet and exercise, no Rx (5) Constipation: Status: Acute Narrative A/P Narrative: Assessment and Plans: 1. CoVID pneumonia with acute respiratory failure with hypoxia: Stays in inpatient PCU with telemetry Isolation: airborne and contact s/p Actemra on 10/23 Continue Dexamethasone d/c Remdesivir due to rising LFTs Supplemental oxygen therapy titrate to achieve spo2>=92%, currently on high flow oxygen 6L/min Prone 16hr/day or as much as patient could tolerated Gentle diuretics with Lasix Lovenox Tylenol PRN fever Robitussin PRN cough DuoNEB NEB PRN SOB or wheezing CXR every few days cbc w/ auto diff in the morning to trend WBC 2. Essential HTN: Currently normotensive Continue gentle diuretics with Lasix IV 3. h/o chronic kidney disease: Serum Cr level 1.1 today Avoid nephrotoxic agents Saline lock with gentle diuretics Lasix IV CMP in the morning to trend kidney functions 4. Constipation: Colace Senna Miralax PRN constipation Lactulose PRN constipation Milk of Magnesia PRN constipation GI ppx: not currently indicated DVT ppx: Lovenox Code status: DNI Prognosis: Guarded Disposition: inpatient PCU with telemetry Time Spent With Patient Time: Total time spent is greater than 50% in coordination of care (as documented) at patient's floor/unit and/or counseling patient: Total time spent with greater than 50% in coordination of care (as documented) at patient's floor/unit and/or counseling patient:: Greater than 35 minutes QUALITY VTE Deep Vein Thrombosis/Pulmonary Embolism Present on Admission: No
[2021-10-29] MEDS: SENNOSIDES/DOCUSATE SODIUM 1 TAB TABLET PO SCH (20:58)
[2021-10-30] MEDS: 0.9 % SODIUM CHLORIDE 10 ML SYRINGE IV SCH ×3 (05:18→21:52)
[2021-10-30 06:59] LABS: Basophils # (Auto) 0.04 K/mcL (0.00-0.30); Basophils % (Auto) 0.4 % (0.0-2.0); Eosinophils # (Auto) 0.17 K/mcL (0.00-0.70); Eosinophils % (Auto) 1.7 % (0.0-7.0); Hematocrit 50.1 % (40.1-51.0); Hemoglobin 16.2 g/dL (13.7-17.5); Lymphocytes # (Auto) 1.83 K/mcL (1.50-4.80); Lymphocytes % (Auto) 18.4 % (15.5-49.0); Mean Cell Volume 87.7 fL (80.0-100.0); Mean Corpuscular HGB Conc 32.3 g/dL (31.0-36.0); Mean Platelet Volume 9.3 fL (7.4-10.4); Monocytes # (Auto) 0.99 K/mcL (0.10-0.90); Monocytes % (Auto) 9.9 % (1.0-12.0); Neutrophils % (Auto) 69.6 % (38.0-78.0); Platelet Count 454 K/mcL (140-440); RBC 5.71 M/mcL (4.63-6.08)
[2021-10-30 07:01] LABS: ALT/SGPT 277 U/L (<40); AST/SGOT 188 U/L (<40); Albumin 2.9 gm/dL (3.2-5.2); Alkaline Phosphatase 49 U/L (39-117); Bilirubin,Total 0.4 mg/dL (0.1-1.0); Blood Urea Nitrogen 25 mg/dL (8-23); Carbon Dioxide 22 mmol/L (22-30); Chloride 96 mmol/L (96-108); Globulin 2.8 gm/dL (2.2-3.7); Glomerular Filtration Rate 77; Glucose 91 mg/dL (70-105)
[2021-10-30] MEDS: DOCUSATE SODIUM 100 MG CAPSULE PO SCH ×3 (07:55→19:17)
[2021-10-30] MEDS: POTASSIUM CITRATE 10 MEQ TAB.XL.24H PO SCH (07:55)
[2021-10-30] MEDS: DEXAMETHASONE 4 MG TABLET PO SCH (07:55)
[2021-10-30] MEDS: MULTIVIT,THER IRON,CA,FA & MIN 1 TABLET PO SCH (07:55)
[2021-10-30] MEDS: VITAMIN D3 125 MCG TABLET PO SCH (07:55)
[2021-10-30] MEDS: FUROSEMIDE 20 MG/2 ML VIAL IV SCH (07:55)
[2021-10-30] MEDS: ENOXAPARIN 30 MG/0.3 ML SYRINGE SQ SCH ×2 (07:56→19:28)
[2021-10-30] MEDS: ASCORBIC ACID 500 MG TABLET PO SCH ×2 (07:56→19:28)
--- NOTE | 2021-10-30 09:26 | Internal Med Progress Note ---
SUBJECTIVE Subjective Patient information: Note initiated : 10/30/21 at 9:22 am Service Date, if different from initiated Date: [] Patient: Zac Farias a 66 y/o M admitted on 10/23/21 for shortness of breath. Chief Complaint: [CoVID pneumonia] Interval history: Interval history: Mr. Farias is a 66 year old M unvaccinated for Covid with who started experiencing URI symptoms roughly 10 days prior to presentation. He was tested positive for Covid 7 days ago. Has tried to work with the symptoms at home however became progressively short of breath, fatigued, tired and loss of appetite. He has not been able to eat or drink over the last few days. His symptoms have progressed to the point she could barely perform ADLs. He endorses to sick contact including his . He further endorses to increasing exertional dyspnea/cough/myalgias, headache but denies diarrhea, dysuria, hemoptysis, dysuria, joint pain or rash Initial work-up in the ER was consistent with multifocal chest infiltrates suggestive of COVID-19 pneumonia. On arrival patient sats low 80s requiring 6 L oxygen. Patient was started on dexamethasone. Subsequently hospitalist service was consulted. At the time of my evaluation patient is moderately distressed. He was able to answer most of the questions. He does not want to be initiated on remdesivir but consents for Actemra. 10/24-patient demonstrating dramatic clinical duration currently on 80% FiO2 50 L high flow, on dexamethasone, status post Actemra 10/23. Refusing remdesivir. Critically ill with PF ratio less than 100. Wants to be DNI. Continue ICU care, interval chest imaging/blood gas in 24 hours, on twice daily enoxaparin for thrombus prophylaxis, twice daily Lasix, creatinine at 1.1, no overnight telemetry events. Anxious and distressed, no other concerns expressed by nursing staff, ABG 7.3 over 80% FiO2 10/25-patient clinically deteriorating, high risk mortality now on 85% FiO2 at 40 L high flow. Continues to refuse remdesivir. Status post Actemra, on dexamethasone. On twice daily thromboprophylaxis/gentle diuresis to improve lung compliance. Discussed patient's clinical findings/with interval worsening of chest imaging. Check echocardiogram, white count 8.1, creatinine 1.3, elevated LDH. Remains critically ill, continue close hemodynamic monitoring in ICU 10/26-patient critically ill currently on 90% FiO2 40 L high flow nasal cannula oxygen. Interval worsening noted. On dexamethasone, refused remdesivir, status post Actemra. White count 6.3, renal function stable creatinine 1.4, feels fatigued lethargic. Tolerating diet. No telemetry events. No other concerns expressed by nursing staff. Reiterated overall grim prognosis to patient based on oxygen need and progression to ARDS . Blood gas 7.51/33/55 on 90% FiO2, PF less than 70 10/27: Afebrile overnight. Sputum cultures no growth to date. Proned 11 hour last night. Been on CPAP 12 cmH20 FiO2 60% overnight, now on high flow oxygen 50L/min FiO2 95%. c/o SOB. c/o productive cough with sputum production. Denies wheezing. Denies chest pain. Denies fever, chills, or sweating. s/p Actemra 10/23. Continue Dexamethasone. Agrees on trying Remdesivir. 10/28: Afebrile overnight. Been prone overnight with CPAP on. Sputum cultures no growth to date. Currently on high flow oxygen 50L/min, FiO2 65%. LFTs went up to the 200s, decided to stop Remdesivir. c/o mild SOB. c/o nonproductive cough. c/o wheezing. Denies chest pain. Denies anxiety. Denies fever, chills, or sweating. s/p Actemra 10/23. Continue Dexamethasone. 10/29: Afebrile overnight. Had a large bowel movement overnight. Been prone 6 hour overnight with CPAP. Currently on 6L/min high flow oxygen. Sputum cultures no growth to date. Denies SOB. c/o productive cough with sputum production. Denies wheezing. Denies chest pain. Denies anxiety. Denies fever, chills, or sweating. s/p Actemra 10/23. Continue Dexamethasone. 10/30: Afebrile overnight. Been on 6L/min oxygen overnight and currently. Improving SOB. c/o nonproductive cough. Denies wheezing. Denies chest pain. Denies fever, chills, or sweating. Denies general body weakness. Denies anxiety. s/p Actemra 10/23. Remdesivir stopped after first loading dose. Continue Dexamethasone. Constitutional Vitals: Vital Signs Temp Pulse Resp BP Pulse Ox 36.4 C 73 11 L 130/94 94 10/30/21 08:01 10/29/21 23:45 10/30/21 08:01 10/30/21 08:01 10/30/21 08:01 Period Temp Pulse Resp BP Sys/Sullivan Pulse Ox Last 24 Hr 36.3 C-36.8 C 73-79 10-23 108-133/72-94 91-96 Intake and Output 10/29/21 10/30/21 10/30/21 21:59 05:59 13:59 Intake Total 1140 460 Output Total 721 784 2922 Balance 440 -515 -1300 Weight 100.754 kg Intake & Output: Intake & Output 10/29/21 10/30/21 10/30/21 21:59 05:59 13:59 Intake Total 1140 460 Output Total 759 269 4283 Balance 440 -515 -1300 Weight 100.754 kg Intake: Oral 1140 460 Output: Void Amount 825 495 7069 Other: Meal Dinner Percent of Meal Consumed 75% Feeding Ability Assist with Tray Set Up Urine Appearance Clear Clear Clear Urine Color Bright Yellow Dark Yellow Pale Urine Odor Normal General appearance: cooperative and no acute distress Head Head exam: Present atraumatic and normal inspection Eye Eye exam: Present normal appearance ENT ENT exam: Present mucous membranes moist, normal exam and normal external ear exam Additional comments: Nasal cannula in place Neck Neck exam: Present normal inspection Respiratory Respiratory exam: Present normal respiratory exam and CTAB; Absent rhonchi or wheezes Cardiovascular Cardiovascular exam: Present normal rate and rhythm GI/Abdominal GI/Abdominal exam: Present normal bowel sounds Back Exam Back exam: Present normal inspection Neurological Exam Neurological exam: Present alert and oriented X3 Skin Skin exam: Present intact and warm OBJ DATA Labs CBC & Chem 7: 10/30/21 05:44 10/30/21 05:44 Labs: Abnormal Lab Results 10/30/21 10/30/21 10/29/21 05:44 05:44 04:56 Plt Count 454 H Lymph % (Auto) Lymph # (Auto) Humphreys # (Auto) 0.99 H Sodium 132 L BUN 25 H 24 H Glucose 106 H AST 188 H 222 H ALT 277 H 276 H Total Protein 5.7 L 5.8 L Albumin 2.9 L 3.1 L 10/29/21 10/28/21 10/28/21 04:56 05:11 05:11 Plt Count 472 H Lymph % (Auto) 15.2 L 13.1 L Lymph # (Auto) 1.36 L 0.90 L Humphreys # (Auto) Sodium BUN Glucose AST 277 H ALT 218 H Total Protein 5.7 L Albumin 2.9 L Meds: Medications Acetaminophen (Acetaminophen 325 Mg Tablet) 650 mg PO Q6HP PRN; Protocol PRN Reason: Per Pain Protocol/Fever > 101 Last Admin: 10/27/21 21:24 Dose: 650 mg Documented by: Albuterol/Ipratropium (Ipratropium/Albuterol 3 Ml Ampul.Neb) 3 ml NEB Q4HP PRN PRN Reason: Shortness Of Breath Ascorbic Acid (Ascorbic Acid 500 Mg Tablet) 1,000 mg PO BID [facility] Last Admin: 10/30/21 07:56 Dose: 1,000 mg Documented by: Budesonide (Budesonide 0.5 Mg/2 Ml Ampul.Neb) 0.5 mg NEB DAILYP PRN PRN Reason: Wheezing Last Admin: 10/24/21 17:39 Dose: 0.5 mg Documented by: Dexamethasone (Dexamethasone 4 Mg Tablet) 6 mg PO DAILY [facility] Last Admin: 10/30/21 07:55 Dose: 6 mg Documented by: Docusate Sodium (Docusate Sodium 100 Mg Capsule) 100 mg PO BID [facility] Last Admin: 10/30/21 08:20 Dose: Not Given Documented by: Enoxaparin Sodium (Enoxaparin 30 Mg/0.3 Ml Syringe) 30 mg SQ BID [facility] Last Admin: 10/30/21 07:56 Dose: 30 mg Documented by: Furosemide (Furosemide 20 Mg/2 Ml Vial) 20 mg IV DAILY [facility] Last Admin: 10/30/21 07:55 Dose: 20 mg Documented by: Guaifenesin (Guaifenesin 100 Mg/5 Ml Oral Dianne) 100 mg PO Q4HP PRN PRN Reason: Congestion Last Admin: 10/26/21 10:51 Dose: 100 mg Documented by: Acetaminophen (Ofirmev) 650 mg in 65 mls @ 130 mls/hr IV Q6HP PRN; Protocol PRN Reason: Per Pain Protocol/Fever > 101 Last Infusion: 10/26/21 11:30 Dose: Infused Documented by: Magnesium Sulfate (Magnesium Sulfate) 2 gm in 50 mls @ 50 mls/hr IV UD PRN PRN Reason: MG = or < 1.7 Potassium Chloride 40 meq/ (Dextrose) 520 mls @ 130 mls/hr IV UD PRN PRN Reason: K+ = or < 3.5 Iron Carb/Multivit/[place]/Folic Acid (Multivit,Ther Iron,Ca,Fa & Min 1 Tablet) 1 tab PO DAILY [facility] Last Admin: 10/30/21 07:55 Dose: 1 tab Documented by: Lactulose (Lactulose 20 Gm/30 Ml Oral.Dianne) 10 gm PO DAILYP PRN PRN Reason: Constipation Last Admin: 10/28/21 09:39 Dose: 10 gm Documented by: Lorazepam (Lorazepam 2 Mg/Ml Vial) 0.5 mg IV Q6HP PRN PRN Reason: ANXIETY/SEDATION Last Admin: 10/28/21 20:22 Dose: 0.5 mg Documented by: Magnesium Hydroxide (Magnesium Hydroxide 30 Ml Oral.Susp) 30 ml PO BIDP PRN PRN Reason: Constipation Last Admin: 10/28/21 16:03 Dose: 30 ml Documented by: Melatonin (Melatonin 3 Mg Tablet) 3 mg PO HSP PRN PRN Reason: Insomnia Last Admin: 10/28/21 20:19 Dose: 3 mg Documented by: Ondansetron HCl (Ondansetron 4 Mg/2 Ml Vial) 4 mg IV Q4-6HP PRN; Protocol PRN Reason: Nausea And Vomiting Last Admin: 10/25/21 01:50 Dose: 4 mg Documented by: Polyethylene Glycol (Polyethylene Glycol 3350 17 Gm Packet) 17 gm PO DAILYP PRN PRN Reason: Constipation Last Admin: 10/27/21 21:25 Dose: 17 gm Documented by: Potassium Chloride (Potassium Chloride 20 Meq Packet) 40 meq PO DAILYP PRN PRN Reason: K+ < 3.5 Potassium Citrate (Potassium Citrate 10 Meq Tab.Xl.24h) 10 meq PO QDAY [facility] Last Admin: 10/30/21 07:55 Dose: 10 meq Documented by: Senna/Docusate Sodium (Sennosides/Docusate Sodium 1 Tab Tablet) 1 tab PO HS [facility] Last Admin: 10/29/21 20:58 Dose: 1 tab Documented by: Sodium Chloride (0.9 % Sodium Chloride 10 Ml Syringe) 10 ml IV Q8 [facility] Last Admin: 10/30/21 05:18 Dose: 10 ml Documented by: Vitamin D (Vitamin D3 5,000 Unit Tablet) 5,000 unit PO DAILY [facility] Last Admin: 10/30/21 07:55 Dose: 5,000 unit Documented by: A/P Assessment and plan (1) COVID-19: Status: Acute (2) Acute respiratory failure with hypoxia: Status: Acute (3) Essential hypertension: Status: Chronic Comment: Last 2 blood pressure readings in the EMR are elevated above 140/80 At follow-up we will decide on initial treatment with probably a low-sodium diet and thiazide if indicated for his nephrolithiasis as well (4) Benign hypertension with CKD (chronic kidney disease) stage III: Status: Chronic Comment: Currently diet and exercise, no Rx (5) Constipation: Status: Acute Narrative A/P Narrative: Assessment and Plans: 1. CoVID pneumonia with acute respiratory failure with hypoxia: Transfer to inpatient med surg Isolation: airborne and contact s/p Actemra on 10/23 Continue Dexamethasone d/c Remdesivir due to rising LFTs Supplemental oxygen therapy titrate to achieve spo2>=92%, currently on 6L/min oxygen Prone 16hr/day or as much as patient could tolerated Gentle diuretics with Lasix Lovenox Tylenol PRN fever Robitussin PRN cough DuoNEB NEB PRN SOB or wheezing CXR every few days cbc w/ auto diff in the morning to trend WBC 2. Essential HTN: Currently normotensive Continue gentle diuretics with Lasix IV 3. h/o chronic kidney disease: Serum Cr level 1.1 today Avoid nephrotoxic agents Saline lock with gentle diuretics Lasix IV CMP in the morning to trend kidney functions 4. Constipation: Colace Senna Miralax PRN constipation Lactulose PRN constipation Milk of Magnesia PRN constipation GI ppx: not currently indicated DVT ppx: Lovenox Code status: DNI Prognosis: stable Disposition: transfer to inpatient med surg Time Spent With Patient Time: Total time spent is greater than 50% in coordination of care (as documented) at patient's floor/unit and/or counseling patient: Total time spent with greater than 50% in coordination of care (as documented) at patient's floor/unit and/or counseling patient:: Greater than 35 minutes QUALITY VTE Deep Vein Thrombosis/Pulmonary Embolism Present on Admission: No
[2021-10-30] MEDS: SENNOSIDES/DOCUSATE SODIUM 1 TAB TABLET PO SCH (19:17)
[2021-10-31] MEDS: 0.9 % SODIUM CHLORIDE 10 ML SYRINGE IV SCH ×3 (05:57→21:21)
[2021-10-31 07:06] LABS: Basophils # (Auto) 0.04 K/mcL (0.00-0.30); Basophils % (Auto) 0.3 % (0.0-2.0); Eosinophils # (Auto) 0.13 K/mcL (0.00-0.70); Eosinophils % (Auto) 1.1 % (0.0-7.0); Hematocrit 49.5 % (40.1-51.0); Lymphocytes # (Auto) 2.27 K/mcL (1.50-4.80); Lymphocytes % (Auto) 19.8 % (15.5-49.0); Mean Cell Volume 85.1 fL (80.0-100.0); Mean Corpuscular HGB Conc 32.3 g/dL (31.0-36.0); Monocytes # (Auto) 1.19 K/mcL (0.10-0.90); Monocytes % (Auto) 10.4 % (1.0-12.0); Neutrophils % (Auto) 68.4 % (38.0-78.0); Platelet Count 522 K/mcL (140-440); RBC 5.82 M/mcL (4.63-6.08); WBC 11.5 K/mcL (4.5-11.0)
[2021-10-31 07:34] LABS: ALT/SGPT 270 U/L (<40); AST/SGOT 140 U/L (<40); Albumin 3.2 gm/dL (3.2-5.2); Albumin/Globulin Ratio 1.2 (1.0-2.3); Alkaline Phosphatase 52 U/L (39-117); Bilirubin,Total 0.3 mg/dL (0.1-1.0); Blood Urea Nitrogen 24 mg/dL (8-23); Calcium 9.2 mg/dL (8.6-10.4); Carbon Dioxide 27 mmol/L (22-30); Chloride 99 mmol/L (96-108); Globulin 2.6 gm/dL (2.2-3.7); Glomerular Filtration Rate 62; Glucose 96 mg/dL (70-105)
[2021-10-31] MEDS: ENOXAPARIN 30 MG/0.3 ML SYRINGE SQ SCH ×2 (09:14→21:21)
[2021-10-31] MEDS: MULTIVIT,THER IRON,CA,FA & MIN 1 TABLET PO SCH (09:15)
[2021-10-31] MEDS: VITAMIN D3 125 MCG TABLET PO SCH (09:15)
[2021-10-31] MEDS: DEXAMETHASONE 4 MG TABLET PO SCH (09:15)
[2021-10-31] MEDS: ASCORBIC ACID 500 MG TABLET PO SCH ×2 (09:15→21:21)
[2021-10-31] MEDS: DOCUSATE SODIUM 100 MG CAPSULE PO SCH ×2 (09:16→21:21)
[2021-10-31] MEDS: FUROSEMIDE 20 MG/2 ML VIAL IV SCH (09:16)
[2021-10-31] MEDS: POTASSIUM CITRATE 10 MEQ TAB.XL.24H PO SCH (09:21)
--- NOTE | 2021-10-31 10:45 | Internal Med Progress Note ---
SUBJECTIVE Subjective Patient information: Note initiated : 10/31/21 at 10:43 am Service Date, if different from initiated Date: [] Patient: Zac Farias a 66 y/o M admitted on 10/23/21 for shortness of breath. Chief Complaint: [CoVID pneumonia ] Interval history: Interval history: Mr. Farias is a 66 year old M unvaccinated for Covid with who started experiencing URI symptoms roughly 10 days prior to presentation. He was tested positive for Covid 7 days ago. Has tried to work with the symptoms at home however became progressively short of breath, fatigued, tired and loss of appetite. He has not been able to eat or drink over the last few days. His symptoms have progressed to the point she could barely perform ADLs. He endorses to sick contact including his . He further endorses to increasing exertional dyspnea/cough/myalgias, headache but denies diarrhea, dysuria, hemoptysis, dysuria, joint pain or rash Initial work-up in the ER was consistent with multifocal chest infiltrates suggestive of COVID-19 pneumonia. On arrival patient sats low 80s requiring 6 L oxygen. Patient was started on dexamethasone. Subsequently hospitalist service was consulted. At the time of my evaluation patient is moderately distressed. He was able to answer most of the questions. He does not want to be initiated on remdesivir but consents for Actemra. 10/24-patient demonstrating dramatic clinical duration currently on 80% FiO2 50 L high flow, on dexamethasone, status post Actemra 10/23. Refusing remdesivir. Critically ill with PF ratio less than 100. Wants to be DNI. Continue ICU care, interval chest imaging/blood gas in 24 hours, on twice daily enoxaparin for thrombus prophylaxis, twice daily Lasix, creatinine at 1.1, no overnight telemetry events. Anxious and distressed, no other concerns expressed by nursing staff, ABG 7.3 over 80% FiO2 10/25-patient clinically deteriorating, high risk mortality now on 85% FiO2 at 40 L high flow. Continues to refuse remdesivir. Status post Actemra, on dexamethasone. On twice daily thromboprophylaxis/gentle diuresis to improve lung compliance. Discussed patient's clinical findings/with interval worsening of chest imaging. Check echocardiogram, white count 8.1, creatinine 1.3, elevated LDH. Remains critically ill, continue close hemodynamic monitoring in ICU 10/26-patient critically ill currently on 90% FiO2 40 L high flow nasal cannula oxygen. Interval worsening noted. On dexamethasone, refused remdesivir, status post Actemra. White count 6.3, renal function stable creatinine 1.4, feels fatigued lethargic. Tolerating diet. No telemetry events. No other concerns expressed by nursing staff. Reiterated overall grim prognosis to patient based on oxygen need and progression to ARDS . Blood gas 7.51/33/55 on 90% FiO2, PF less than 70 10/27: Afebrile overnight. Sputum cultures no growth to date. Proned 11 hour last night. Been on CPAP 12 cmH20 FiO2 60% overnight, now on high flow oxygen 50L/min FiO2 95%. c/o SOB. c/o productive cough with sputum production. Denies wheezing. Denies chest pain. Denies fever, chills, or sweating. s/p Actemra 10/23. Continue Dexamethasone. Agrees on trying Remdesivir. 10/28: Afebrile overnight. Been prone overnight with CPAP on. Sputum cultures no growth to date. Currently on high flow oxygen 50L/min, FiO2 65%. LFTs went up to the 200s, decided to stop Remdesivir. c/o mild SOB. c/o nonproductive cough. c/o wheezing. Denies chest pain. Denies anxiety. Denies fever, chills, or sweating. s/p Actemra 10/23. Continue Dexamethasone. 10/29: Afebrile overnight. Had a large bowel movement overnight. Been prone 6 hour overnight with CPAP. Currently on 6L/min high flow oxygen. Sputum cultures no growth to date. Denies SOB. c/o productive cough with sputum production. Denies wheezing. Denies chest pain. Denies anxiety. Denies fever, chills, or sweating. s/p Actemra 10/23. Continue Dexamethasone. 10/30: Afebrile overnight. Been on 6L/min oxygen overnight and currently. Improving SOB. c/o nonproductive cough. Denies wheezing. Denies chest pain. Denies fever, chills, or sweating. Denies general body weakness. Denies anxiety. s/p Actemra 10/23. Remdesivir stopped after first loading dose. Continue Dexamethasone. 12/21: Afebrile overnight. Been on 6L/min oxygen overnight and currently. Improving SOB. c/o nonproductive cough. Denies wheezing. Denies chest pain. Denies fever, chills, or sweating. Denies general body weakness. Denies anxiety. s/p Actemra 10/23. Remdesivir stopped after first loading dose. Continue Dexamethasone. Constitutional Vitals: Vital Signs Temp Pulse Resp BP Pulse Ox 36.1 C L 67 20 121/81 91 10/31/21 08:00 10/31/21 08:00 10/31/21 08:00 10/31/21 08:00 10/31/21 08:00 Period Temp Pulse Resp BP Sys/Sullivan Pulse Ox Last 24 Hr 35.7 C-36.8 C 59-78 15-20 113-136/68-92 90-95 Intake and Output 10/30/21 10/31/21 10/31/21 21:59 05:59 13:59 Intake Total 560 600 800 Output Total 1600 1190 575 Balance -1040 -590 225 Weight 100.754 kg Intake & Output: Intake & Output 10/30/21 10/31/21 10/31/21 21:59 05:59 13:59 Intake Total 560 600 800 Output Total 1600 1190 575 Balance -1040 -590 225 Weight 100.754 kg Intake: Oral 560 600 800 Output: Void Amount 1600 1190 575 Other: Meal Lunch Percent of Meal Consumed 100% Urine Appearance Clear Clear Urine Color Bright Yellow Straw Urine Odor Normal Normal General appearance: average body habitus, cooperative and no acute distress Head Head exam: Present atraumatic and normal inspection Eye Eye exam: Present normal appearance ENT ENT exam: Present mucous membranes moist, normal exam and normal external ear exam Additional comments: Nasal cannula in place Neck Neck exam: Present normal inspection Respiratory Respiratory exam: Present normal respiratory exam and rhonchi Cardiovascular Cardiovascular exam: Present normal rate and rhythm GI/Abdominal GI/Abdominal exam: Present normal bowel sounds Back Exam Back exam: Present normal inspection Neurological Exam Neurological exam: Present alert and oriented X3 Skin Skin exam: Present intact and warm OBJ DATA Labs CBC & Chem 7: 10/31/21 05:32 10/31/21 05:32 Labs: Abnormal Lab Results 10/31/21 10/31/21 10/30/21 05:32 05:32 05:44 WBC 11.5 H Plt Count 522 H Lymph % (Auto) Lymph # (Auto) [place] # (Auto) 1.19 H Sodium 132 L BUN 24 H 25 H Glucose AST 140 H 188 H ALT 270 H 277 H Total Protein 5.8 L 5.7 L Albumin 2.9 L 10/30/21 10/29/21 10/29/21 05:44 04:56 04:56 WBC Plt Count 454 H 472 H Lymph % (Auto) 15.2 L Lymph # (Auto) 1.36 L [place] # (Auto) 0.99 H Sodium BUN 24 H Glucose 106 H AST 222 H ALT 276 H Total Protein 5.8 L Albumin 3.1 L Meds: Medications Acetaminophen (Acetaminophen 325 Mg Tablet) 650 mg PO Q6HP PRN; Protocol PRN Reason: Per Pain Protocol/Fever > 101 Last Admin: 10/27/21 21:24 Dose: 650 mg Documented by: Albuterol/Ipratropium (Ipratropium/Albuterol 3 Ml Ampul.Neb) 3 ml NEB Q4HP PRN PRN Reason: Shortness Of Breath Ascorbic Acid (Ascorbic Acid 500 Mg Tablet) 1,000 mg PO BID [facility] [place] Last Admin: 10/31/21 09:15 Dose: 1,000 mg Documented by: Budesonide (Budesonide 0.5 Mg/2 Ml Ampul.Neb) 0.5 mg NEB DAILYP PRN PRN Reason: Wheezing Last Admin: 10/24/21 17:39 Dose: 0.5 mg Documented by: Dexamethasone (Dexamethasone 4 Mg Tablet) 6 mg PO DAILY [facility] [place] Last Admin: 10/31/21 09:15 Dose: 6 mg Documented by: Docusate Sodium (Docusate Sodium 100 Mg Capsule) 100 mg PO BID [facility] [place] Last Admin: 10/31/21 09:16 Dose: Not Given Documented by: Enoxaparin Sodium (Enoxaparin 30 Mg/0.3 Ml Syringe) 30 mg SQ BID [facility] [place] Last Admin: 10/31/21 09:14 Dose: 30 mg Documented by: Furosemide (Furosemide 20 Mg/2 Ml Vial) 20 mg IV DAILY [facility] [place] Last Admin: 10/31/21 09:16 Dose: 20 mg Documented by: Guaifenesin (Guaifenesin 100 Mg/5 Ml Oral Dianne) 100 mg PO Q4HP PRN PRN Reason: Congestion Last Admin: 10/26/21 10:51 Dose: 100 mg Documented by: Acetaminophen (Ofirmev) 650 mg in 65 mls @ 130 mls/hr IV Q6HP PRN; Protocol PRN Reason: Per Pain Protocol/Fever > 101 Last Infusion: 10/26/21 11:30 Dose: Infused Documented by: Magnesium Sulfate (Magnesium Sulfate) 2 gm in 50 mls @ 50 mls/hr IV UD PRN PRN Reason: MG = or < 1.7 Potassium Chloride 40 meq/ (Dextrose) 520 mls @ 130 mls/hr IV UD PRN PRN Reason: K+ = or < 3.5 Iron Carb/Multivit/[place]/Folic Acid (Multivit,Ther Iron,Ca,Fa & Min 1 Tablet) 1 tab PO DAILY [facility] Last Admin: 10/31/21 09:15 Dose: 1 tab Documented by: Lactulose (Lactulose 20 Gm/30 Ml Oral.Dianne) 10 gm PO DAILYP PRN PRN Reason: Constipation Last Admin: 10/28/21 09:39 Dose: 10 gm Documented by: Lorazepam (Lorazepam 2 Mg/Ml Vial) 0.5 mg IV Q6HP PRN PRN Reason: ANXIETY/SEDATION Last Admin: 10/28/21 20:22 Dose: 0.5 mg Documented by: Magnesium Hydroxide (Magnesium Hydroxide 30 Ml Oral.Susp) 30 ml PO BIDP PRN PRN Reason: Constipation Last Admin: 10/28/21 16:03 Dose: 30 ml Documented by: Melatonin (Melatonin 3 Mg Tablet) 3 mg PO HSP PRN PRN Reason: Insomnia Last Admin: 10/28/21 20:19 Dose: 3 mg Documented by: Ondansetron HCl (Ondansetron 4 Mg/2 Ml Vial) 4 mg IV Q4-6HP PRN; Protocol PRN Reason: Nausea And Vomiting Last Admin: 10/25/21 01:50 Dose: 4 mg Documented by: Polyethylene Glycol (Polyethylene Glycol 3350 17 Gm Packet) 17 gm PO DAILYP PRN PRN Reason: Constipation Last Admin: 10/27/21 21:25 Dose: 17 gm Documented by: Potassium Chloride (Potassium Chloride 20 Meq Packet) 40 meq PO DAILYP PRN PRN Reason: K+ < 3.5 Potassium Citrate (Potassium Citrate 10 Meq Tab.Xl.24h) 10 meq PO QDAY [facility] [place] Last Admin: 10/31/21 09:21 Dose: 10 meq Documented by: Senna/Docusate Sodium (Sennosides/Docusate Sodium 1 Tab Tablet) 1 tab PO HS [facility] [place] Last Admin: 10/30/21 19:17 Dose: Not Given Documented by: Sodium Chloride (0.9 % Sodium Chloride 10 Ml Syringe) 10 ml IV Q8 [facility] [place] Last Admin: 10/31/21 05:57 Dose: 10 ml Documented by: Vitamin D (Vitamin D3 5,000 Unit Tablet) 5,000 unit PO DAILY [facility] [place] Last Admin: 10/31/21 09:15 Dose: 5,000 unit Documented by: A/P Assessment and plan (1) COVID-19: Status: Acute (2) Acute respiratory failure with hypoxia: Status: Acute (3) Essential hypertension: Status: Chronic Comment: Last 2 blood pressure readings in the EMR are elevated above 140/80 At follow-up we will decide on initial treatment with probably a low-sodium diet and thiazide if indicated for his nephrolithiasis as well (4) Benign hypertension with CKD (chronic kidney disease) stage III: Status: Chronic Comment: Currently diet and exercise, no Rx (5) Constipation: Status: Acute Narrative A/P Narrative: Assessment and Plans: 1. CoVID pneumonia with acute respiratory failure with hypoxia: Stays in inpatient med surg Isolation: airborne and contact s/p Actemra on 10/23 Continue Dexamethasone d/c Remdesivir due to rising LFTs Supplemental oxygen therapy titrate to achieve spo2>=92%, currently on 6L/min oxygen Prone 16hr/day or as much as patient could tolerated Gentle diuretics with Lasix Lovenox Tylenol PRN fever Robitussin PRN cough DuoNEB NEB PRN SOB or wheezing CXR every few days cbc w/ auto diff in the morning to trend WBC 2. Essential HTN: Currently normotensive Continue gentle diuretics with Lasix IV 3. h/o chronic kidney disease: Serum Cr level 1.1 today Avoid nephrotoxic agents Saline lock with gentle diuretics Lasix IV CMP in the morning to trend kidney functions 4. Constipation: Colace Senna Miralax PRN constipation Lactulose PRN constipation Milk of Magnesia PRN constipation GI ppx: not currently indicated DVT ppx: Lovenox Code status: DNI Prognosis: stable Disposition: stays in inpatient med surg Time Spent With Patient Time: Total time spent is greater than 50% in coordination of care (as documented) at patient's floor/unit and/or counseling patient: Total time spent with greater than 50% in coordination of care (as documented) at patient's floor/unit and/or counseling patient:: Greater than 35 minutes QUALITY VTE Deep Vein Thrombosis/Pulmonary Embolism Present on Admission: No
[2021-10-31] MEDS: SENNOSIDES/DOCUSATE SODIUM 1 TAB TABLET PO SCH (21:21)
[2021-10-31] MEDS: MELATONIN 3 MG TABLET PO PRN (21:21)
[2021-11-01] MEDS: 0.9 % SODIUM CHLORIDE 10 ML SYRINGE IV SCH (06:33)
--- NOTE | 2021-11-01 09:25 | Discharge Summary ---
Discharge Provider Provider Patient information: Note initiated : 11/01/21 at 9:23 am Service Date, if different from initiated Date: [] Patient: Zac Farias 66 y/o M admitted on 10/23/21 for shortness of breath. Chief Complaint: [] Date of admission: 10/23/21 14:08 Discharge date: 11/01/21 Primary care physician: Jose Alberto Ramos DO Consults: 10/23/21 Consult to Physician [CONS] Stat Comment: Consulting Provider: Giovanni Riley Reason For Exam: Physician to Consult 10/23/21 12:21 Consult to Physician [CONS] Stat Comment: Consulting Provider: Giovanni Riley Reason For Exam: Physician to Consult Discharge Meds Discharge Medications Home Medications potassium citrate 10 mEq (1,080 mg) tablet,extended release 10 meq PO QDAY tab 08/04/20 [History Confirmed 10/23/21 Last Taken Unknown] COURSE Hospital Course Hospital course: Discharge diagnosis * COVID-19 pneumonia clinically improved. Status post Actemra/ dexamethasone for 10 days. Discharging home * Acute hypoxic respiratory failure secondary to COVID-19 pneumonia. Clinically improving. Now on 4 L oxygen. Discharging on home oxygen. Brief hospital course Mr. Farias is a 66 year old M unvaccinated for Covid with who started experiencing URI symptoms roughly 10 days prior to presentation. He was tested positive for Covid 7 days ago. Has tried to work with the symptoms at home however became progressively short of breath, fatigued, tired and loss of appetite. He has not been able to eat or drink over the last few days. His symptoms have progressed to the point she could barely perform ADLs. He endorses to sick contact including his . He further endorses to increasing exertional dyspnea/cough/myalgias, headache but denies diarrhea, dysuria, hemoptysis, dysuria, joint pain or rash Initial work-up in the ER was consistent with multifocal chest infiltrates suggestive of COVID-19 pneumonia. On arrival patient sats low 80s requiring 6 L oxygen. Patient was started on dexamethasone. Subsequently hospitalist service was consulted. At the time of my evaluation patient is moderately distressed. He was able to answer most of the questions. He does not want to be initiated on remdesivir but consents for Actemra. 11/24-patient demonstrating dramatic clinical duration currently on 80% FiO2 50 L high flow, on dexamethasone, status post Actemra 10/23. Refusing remdesivir. Critically ill with PF ratio less than 100. Wants to be DNI. Continue ICU care, interval chest imaging/blood gas in 24 hours, on twice daily enoxaparin for thrombus prophylaxis, twice daily Lasix, creatinine at 1.1, no overnight telemetry events. Anxious and distressed, no other concerns expressed by nursing staff, ABG 7.3 over 80% FiO2 10/25-patient clinically deteriorating, high risk mortality now on 85% FiO2 at 40 L high flow. Continues to refuse remdesivir. Status post Actemra, on dexamethasone. On twice daily thromboprophylaxis/gentle diuresis to improve lung compliance. Discussed patient's clinical findings/with interval worsening of chest imaging. Check echocardiogram, white count 8.1, creatinine 1.3, elevated LDH. Remains critically ill, continue close hemodynamic monitoring in ICU 10/26-patient critically ill currently on 90% FiO2 40 L high flow nasal cannula oxygen. Interval worsening noted. On dexamethasone, refused remdesivir, status post Actemra. White count 6.3, renal function stable creatinine 1.4, feels fatigued lethargic. Tolerating diet. No telemetry events. No other concerns expressed by nursing staff. Reiterated overall grim prognosis to patient based on oxygen need and progression to ARDS . Blood gas 7.51/55 on 90% FiO2, PF less than 70 10/27: Afebrile overnight. Sputum cultures no growth to date. Proned 11 hour last night. Been on CPAP 12 cmH20 FiO2 60% overnight, now on high flow oxygen 50L/min FiO2 95%. c/o SOB. c/o productive cough with sputum production. Denies wheezing. Denies chest pain. Denies fever, chills, or sweating. s/p Actemra 10/23. Continue Dexamethasone. Agrees on trying Remdesivir. 10/28: Afebrile overnight. Been prone overnight with CPAP on. Sputum cultures no growth to date. Currently on high flow oxygen 50L/min, FiO2 65%. LFTs went up to the 200s, decided to stop Remdesivir. c/o mild SOB. c/o nonproductive cough. c/o wheezing. Denies chest pain. Denies anxiety. Denies fever, chills, or sweating. s/p Actemra 10/23. Continue Dexamethasone. 10/29: Afebrile overnight. Had a large bowel movement overnight. Been prone 6 hour overnight with CPAP. Currently on 6L/min high flow oxygen. Sputum cultures no growth to date. Denies SOB. c/o productive cough with sputum production. Denies wheezing. Denies chest pain. Denies anxiety. Denies fever, chills, or sweating. s/p Actemra 10/23. Continue Dexamethasone. 10/30: Afebrile overnight. Been on 6L/min oxygen overnight and currently. Improving SOB. c/o nonproductive cough. Denies wheezing. Denies chest pain. Denies fever, chills, or sweating. Denies general body weakness. Denies anxiety. s/p Actemra 10/23. Remdesivir stopped after first loading dose. Continue Dexamethasone. 10/31/21: Afebrile overnight. Been on 6L/min oxygen overnight and currently. Improving SOB. c/o nonproductive cough. Denies wheezing. Denies chest pain. Denies fever, chills, or sweating. Denies general body weakness. Denies anxiety. s/p Actemra 10/23. Remdesivir stopped after first loading dose. Continue Dexamethasone. 11/01-Patient doing well, now on 4 L oxygen. Requesting discharge. Continue home oxygen, contact precaution additional 5 days. Follow-up with PCP in 5 to 10 days. Discharge diagnosis: COVID-19 pneumonia Time Spent with Patient Time attestation: Total time spent providing and/or coordinating discharge services: Time spent: Greater than 30 minutes EXAM Constitutional Vitals: Temp Pulse Resp BP Pulse Ox 97.8 F 83 18 136/70 94 11/01/21 08:00 11/01/21 08:00 11/01/21 08:00 11/01/21 08:00 11/01/21 08:00 Discharge Plan Patient/Caregiver Discharge Instructions Activity: ambulate only with your walker Diet: Regular Diet Prescriptions: Continued potassium citrate 10 mEq (1,080 mg) tablet extended release 10 meq PO QDAY 0RF Follow Up Plan Follow up with: Beaver,Jose Albetro, DO [Primary Care Provider] - 11/08/21 1:00 pm (Please check in at 12:45 pm. This appointment is with Dr. Thompson as Dr. Ramos is not available.) Patient Disposition: Home, Self-Care Rehab Potential: Good I certify that the patient requires SNF services: No Overall status at discharge: patient is progressing back to baseline Discharge Orders: Discharge Order (Routine); Ordered 11/01/21 Ordered By: Giovanni ZAMARRIPA VTE Deep Vein Thrombosis/Pulmonary Embolism Present on Admission: No
[2021-11-01] MEDS: ASCORBIC ACID 500 MG TABLET PO SCH (09:32)
[2021-11-01] MEDS: DEXAMETHASONE 4 MG TABLET PO SCH (09:32)
[2021-11-01] MEDS: POTASSIUM CITRATE 10 MEQ TAB.XL.24H PO SCH (09:33)
[2021-11-01] MEDS: VITAMIN D3 125 MCG TABLET PO SCH (09:33)
[2021-11-01] MEDS: ENOXAPARIN 30 MG/0.3 ML SYRINGE SQ SCH (09:33)
[2021-11-01] MEDS: MULTIVIT,THER IRON,CA,FA & MIN 1 TABLET PO SCH (09:33)
[2021-11-01] MEDS: DOCUSATE SODIUM 100 MG CAPSULE PO SCH (09:36)
[2021-11-01] MEDS: FUROSEMIDE 20 MG/2 ML VIAL IV SCH (09:36)
== END 2021-11-01 11:05 | disposition home or self-care (01) | DRG 177 ==
LOC: ED 09:18 → ICU 14:08
PROVIDERS: ADMIT Internal Medicine; ATTEND Internal Medicine